=== PATIENT | female | born 1975 | race Caucasian/White ===

== ENCOUNTER 2017-06-08 15:35 | Inpatient (IN) ==
[2017-06-08] MEDS ORDERED: 0.9 % Sodium Chloride 1,000 ML IVC ONE (16:53)
[2017-06-08] MEDS ORDERED: *HR* FentaNYL (PF) 100 MCG/2 ML VIAL IVP ONE (16:54)
[2017-06-08] MEDS ORDERED: Piperacillin/Tazobactam 3.375 GM in 0.9 % Sodium Chloride Mini Bag 100 ML IVPB ONE (16:57)
--- NOTE | 2017-06-08 16:58 | Emergency Department Note ---
Disposition Clinical Impression: Cellulitis of breast, Breast abscess Disposition: Admitted As Inpatient Condition: Fair Time of Disposition: 20:34 General Adult HPI - General Chief complaint: ED General Medical Stated complaint: R breast swelling Time Seen by Provider: 06/08/17 16:14 Source: patient Mode of arrival: ambulatory Limitations: no limitations Nursing Notes Reviewed: Yes Vital Signs Reviewed: Yes - History of Present Illness HPI Narrative: 42-year-old female percent for evaluation of right breast pain and swelling. Patient states she hit her breast approximately week and half ago. Patient states that over the past 6 days she developed redness and swelling over the breast. Patient also noted increasing pain. Patient reports fevers over the past 3 days. Patient states that she has had fevers of 103 over the past 3 days. Patient denies any other symptoms. No nausea or vomiting. No abdominal pain. Patient denies any discharge from the breast. Patient states she is not because she has had a hysterectomy. Denies history of IV drug use. Pain Scale: 10 - Related Data Home Medications Medication Instructions Recorded Confirmed Depakote (12 HR) 01/04/15 01/04/15 Vicks Dayquil Cough 01/04/15 01/04/15 Wellbutrin 01/04/15 01/04/15 Previous Rx's Medication Instructions Recorded GuaiFENesin ER [Mucinex] 1 - 2 tab PO BID PRN #40 tab 01/04/15 Hydrocodone/Acetaminophen [[place] 1 each PO Q4H PRN #10 tablet 01/04/15 5-325 Tablet] Ibuprofen [Motrin] 800 mg PO Q6-8H PRN #30 tablet 01/04/15 Nitrofurantoin (BID) [Macrobid] 100 mg PO BID #14 capsule 01/04/15 Phenazopyridine HCl [Pyridium] 200 mg PO TID PRN #21 tablet 01/04/15 Promethazine/Dextromethorphan 5 ml PO Q4H PRN #120 ml 01/04/15 [Promethazine-Dm Syrup] Hydrocodone/Acetaminophen [[place] 1 tab PO Q6H PRN #10 tab 06/18/15 5-325 Tablet] Meloxicam [Mobic] 7.5 mg PO DAILY #20 tablet 08/27/15 Methocarbamol [Robaxin] 750 mg PO Q8HR PRN #20 tablet 08/27/15 Cyclobenzaprine [Flexeril] 10 mg PO TID #30 tablet 05/05/16 Peg 3350/Na Sulf,Bicarb,Cl/KCl 4,000 ml PO DAILY #1 soln.recon 07/10/16 [Golytely Solution] Allergies Allergy/AdvReac Type Severity Reaction Status Date / Time No Known Allergies Allergy Verified 01/04/15 14:45 All systems ED: reviewed and negative except as stated. Constitutional: Reports: fever Cardiovascular: Denies: chest pain Respiratory: Denies: cough Gastrointestinal: Denies: abdominal pain, nausea, vomiting Past Medical History - Past Medical History Source: patient Medical history: Reports: hepatitis, other Psychiatric history: Reports: anxiety, bipolar, depression, panic disorder - Social History Smoking Status: Light tobacco smoker Smokeless Tobacco Status: No Alcohol use: Reports: rarely Drug use: Reports: none Physical Exam - General Limitations: no limitations General appearance: alert, in no apparent distress - Head Head exam: atraumatic, normocephalic, normal inspection - Eye Eye exam: Present: normal appearance - ENT ENT exam: normal exam, mucous membranes moist - Neck Neck exam: Present: normal inspection - Chest Chest inspection: Present: normal inspection, other (Breast exam in the presence of a tire inspector shows extensive redness consistent with cellulitis of the dependent region of the right breast. There is an area of aged ecchymosis. Patient did not offer any palpation. No purulent discharge noted.) - Respiratory Respiratory exam: Present: normal lung sounds bilaterally. Absent: respiratory distress - Cardiovascular Cardiovascular exam: Present: regular rate, normal rhythm. Absent: systolic murmur - Abdominal Exam Abdominal exam: Present: soft, Non-Tender - Extremities Exam Extremities exam: Present: normal inspection - Back Exam Back exam: Present: normal inspection - Neurological Exam Neurological exam: Present: alert - Skin Skin exam: Present: warm, dry, intact, normal color, other (As discussed above) Course Course Narrative: Patient has extensive cellulitis of the right breast. Does have area of ecchymosis likely related to trauma. Concerns of cellulitis patient benefit from basic labs as well as CT imaging to evaluate for any possible abscess collection. Patient will likely require admission to ensure symptom resolution. - Reevaluation(s) Reevaluation #1: R EJ placed. Time: 18:21 Reevaluation #2: Awaiting CT scan. Patient's pain has improved. Time: 19:17 - Consultations Consultation #1: Spoke with Dr. Griggs who feels comfortably admitting the patient. Time: 20:24 Vital Signs Temperature 97.6 F 06/08/17 15:39 Pulse Rate 89 06/08/17 15:39 Respiratory Rate 14 06/08/17 15:39 Blood Pressure 118/79 06/08/17 15:39 O2 Sat by Pulse Oximetry 100 06/08/17 15:39 Temperature 97.6 F 06/08/17 15:39 Pulse Rate 89 06/08/17 15:39 Respiratory Rate 14 06/08/17 15:39 Blood Pressure 118/79 06/08/17 15:39 O2 Sat by Pulse Oximetry 100 06/08/17 15:39 Oxygen Delivery Oxygen Delivery Room Air Medical Decision Making - MDM Narrative Medical decision making narrative: Patient seen and examined. Patient has extensive cellulitis involvement of the right breast with underlying loculated abscess. Discussed case with surgery who states that they feel comfortable consulting with the patient. Patient was started on Vanco and Zosyn in the emergency department. Patient pain was addressed. Plan of care was discussed with patient at bedside. Patient will require formal surgical consult as well as IV antibiotics, pain control, and symptom resolution. - Lab Data Lab results reviewed: Yes I reviewed the patient's lab results. Result diagrams: 06/08/17 18:27 06/08/17 18:27 Lab Results 06/08/17 06/08/17 06/08/17 Range/Units 18:27 18:27 18:27 WBC 13.6 H (4.3-11.1) K/mcL RBC 3.28 L (3.82-4.97) M/mcL Hgb 10.1 L (11.5-15.4) g/dL Hct 29.7 L (35.3-44.9) % MCV 90.5 (83.0-100.0) fL MCH 30.8 (28.0-33.3) pg MCHC 34.0 (31.6-35.5) g/dL RDW 13.3 (11.5-14.5) % Plt Count 155 (140-400) K/mcL MPV 11.3 (9.4-12.4) fL Immature Gran % 2.6 (0-4) % Seg Neutrophils % 66.4 % Lymphocytes % 15.9 % Monocytes % 13.0 % Eosinophils % 1.8 % Basophils % 0.3 % Neutrophils # 9.0 H (1.6-8.9) K/mcL Lymphocytes # 2.2 (0.6-4.6) K/mcL Monocytes # 1.8 H (0.0-1.3) K/mcL Eosinophils # 0.2 (0.0-0.6) K/mcL Basophils # 0.0 (0.0-0.2) K/mcL Nucleated RBCs/100 WBC 0.2 H (0) /100 WBC Sodium 134 L (136-145) mEq/L Potassium 3.5 (3.5-5.1) mEq/L Chloride 104 (98-107) mEq/L Carbon Dioxide 26 (23-29) mEq/L BUN 8 (6-20) mg/dL Creatinine 0.82 (0.60-1.20) mg/dL Est GFR ( Amer) > 60 (> 60) Est GFR (Non-Af Amer) > 60 (> 60) BUN/Creatinine Ratio 10 (6-26) Glucose 94 (70-105) mg/dL Calculated Osmolality 276 L (280-300) Lactic Acid 0.9 (0.5-2.2) mmol/L Calcium 8.5 L (8.6-10.3) mg/dL - Radiology Data Radiology results reviewed: Yes I reviewed the patient's radiology results. Chest CT 06/08/17 16:56 IMPRESSION: 1. Diffuse swelling of the asymmetrically enlarged right breast, most likely mastitis given the clinical findings. Additionally, there appears to be a the loculated abscess just below the level of the right nipple. However, inflammatory carcinoma could appear similar. Recommend further evaluation with targeted sonography of the right breast. 2. Mildly enlarged right levels 1 and 2 axillary lymph nodes are most likely reactive, as are additional nonenlarged bilateral supraclavicular, bilateral axillary, mediastinal, hilar, and upper abdominal lymph nodes. Recommend attention on follow-up imaging. 3. Patchy subpleural and peribronchovascular groundglass opacities in both lungs with basilar sparing considerations include atypical pneumonia, eosinophilic pneumonia, or edema. The appearance is not suggestive of pulmonary sarcoidosis, although this remains a consideration given the above lymphadenopathy. 4. Findings suggestive of early cirrhosis as well as portal hypertension. D/ / Wesly Tsang MD / Wesly Tsang MD Interpreting Provider: Wesly Tsang MD Vamshi - Vamshi Situation: Demographics Background: Presenting Complaint Assessment: Vital Signs, Course and respsone to treatment, Patient/Family Expectation Recommendation: Barrier(s) to disposition, Recommendation based on pending studies, treatments, or consults S.Stanley Report Given to: Dr. Emma Bonds Repor Time: 20:34 Attestation Statement - Attestation Attestation: Patient was seen with resident physician. I reviewed the history, physical, assessment and plan, and agree with the findings. I also personally evaluated this patient and had [id number] time with this patient. 42-year-old female presents to the emergency department with painful swelling of the right breast. Patient states that approximately week ago she stumbled and fell impacting the lower middle portion of her right breast. Since then she has noticed increased pain. Increased redness around the breast, and she has had fevers up to 103. She denies other injuries to the breast at this time. She said she does have another bruise to the left breast but did not result in the pain swelling or redness. She is here today for evaluation and treatment. She denies other symptoms. Review of systems completed as per history of present illness. Remainder reviewed negative. Exam. Vital signs are stable. ENT is unremarkable. Heart and lungs are both normal. Abdomen soft nontender. Extremities unremarkable. Neurologically intact. Skin and chest wall exam, patient has a rather large cellulitic type infection to the right breast. There is bruising at the lower aspect of the breast where she impacted it, it is unclear if there is abscess as the patient would not allow us to physically examine the area secondary to pain. Psych exam normal. ED course. We will do a septic workup and start the patient on IV antibiotics. CT scan revealed developing abscess of the breast with extensive cellulitic changes and lymphadenopathy. We discussed these findings with surgery who is comfortable keeping her here for possible drainage with admission to the medical service for IV antibiotic therapy. Patient was difficult stick and we ended up having to place a right external jugular IV. She did receive IV antibiotics while here. Additionally we spoke with the hospitalist service to arrange for admission. I agree with resident physician assessment and plan.
[2017-06-08 18:40] LABS: Basophils % 0.3 %; Eosinophils # 0.2 K/mcL (0.0-0.6); Eosinophils % 1.8 %; Hematocrit 29.7 % (35.3-44.9); Hemoglobin 10.1 g/dL (11.5-15.4); Immature Granulocytes % 2.6 % (0-4); Lymphocytes # 2.2 K/mcL (0.6-4.6); Lymphocytes % 15.9 %; Mean Corpuscular Hemoglobin 30.8 pg (28.0-33.3); Mean Corpuscular Volume 90.5 fL (83.0-100.0); Mean Platelet Volume 11.3 fL (9.4-12.4); Monocytes # 1.8 K/mcL (0.0-1.3); Nucleated Red Blood Cells 0.2 /100 WBC (0); Platelet Count 155 K/mcL (140-400); Red Blood Count 3.28 M/mcL (3.82-4.97); Red Cell Distribution Width 13.3 % (11.5-14.5); Segmented Neutrophils % 66.4 %
[2017-06-08 19:08] LABS: BUN/Creatinine Ratio 10 (6-26); Blood Urea Nitrogen 8 mg/dL (6-20); Calcium 8.5 mg/dL (8.6-10.3); Carbon Dioxide 26 mEq/L (23-29); Chloride 104 mEq/L (98-107); Glucose 94 mg/dL (70-105); Osmolality,Calculated 276 (280-300); Potassium 3.5 mEq/L (3.5-5.1); Sodium 134 mEq/L (136-145); eGFR For African Americans > 60 (> 60); eGFR For Non-African Americans > 60 (> 60)
[2017-06-08] MEDS ORDERED: Naloxone 0.4 MG/ML INJ IVP PRN (21:03)
[2017-06-08] MEDS ORDERED: Ketorolac 30 MG/ML VIAL IVP PRN (21:03)
[2017-06-08] MEDS ORDERED: Acetaminophen 325 MG TABLET PO PRN (21:03)
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
[2017-06-08] MEDS ORDERED: Ketorolac 15 MG/ML VIAL IVP ONE (21:51)
[2017-06-08] MEDS ORDERED: OXYCODONE Oral CONC 10 MG/0.5 ML ORAL.SYG SL STA (23:06)
[2017-06-09] MEDS: 0.9 % Sodium Chloride 1,000 ML IVC SCH (00:25)
[2017-06-09] MEDS: Piperacillin/Tazobactam 3.375 GM in 0.9 % Sodium Chloride Mini Bag 100 ML IVPB SCH ×4 (01:10→18:03)
[2017-06-09] MEDS ORDERED: Divalproex (24 HR) 500 MG TABLET PO SCH (03:45)
[2017-06-09] MEDS: diazePAM 5 MG TABLET PO SCH ×3 (04:00→22:32)
[2017-06-09] MEDS ORDERED: OXYCODONE Oral CONC 10 MG/0.5 ML ORAL.SYG SL ONE (05:37)
[2017-06-09] MEDS: *HR* Heparin 5,000 UNIT/ML VIAL SQ SCH ×2 (05:56→18:03)
[2017-06-09 09:27] LABS: Basophils % 0.2 %; Eosinophils # 0.2 K/mcL (0.0-0.6); Hematocrit 28.5 % (35.3-44.9); Hemoglobin 9.3 g/dL (11.5-15.4); Immature Granulocytes % 2.1 % (0-4); Lymphocytes # 3.2 K/mcL (0.6-4.6); Lymphocytes % 20.6 %; Mean Corpuscular HGB Conc 32.6 g/dL (31.6-35.5); Mean Corpuscular Hemoglobin 30.1 pg (28.0-33.3); Mean Corpuscular Volume 92.2 fL (83.0-100.0); Monocytes # 1.8 K/mcL (0.0-1.3); Monocytes % 11.6 %; Nucleated Red Blood Cells 0.3 /100 WBC (0); Platelet Count 161 K/mcL (140-400); Red Blood Count 3.09 M/mcL (3.82-4.97); Red Cell Distribution Width 13.4 % (11.5-14.5); Segmented Neutrophils % 64.5 %
[2017-06-09 09:46] LABS: BUN/Creatinine Ratio 7 (6-26); Blood Urea Nitrogen 6 mg/dL (6-20); Calcium 8.2 mg/dL (8.6-10.3); Carbon Dioxide 24 mEq/L (23-29); Chloride 102 mEq/L (98-107); Glucose 109 mg/dL (70-105); Osmolality,Calculated 274 (280-300); Potassium 3.6 mEq/L (3.5-5.1); Sodium 133 mEq/L (136-145); eGFR For African Americans > 60 (> 60); eGFR For Non-African Americans > 60 (> 60)
--- NOTE | 2017-06-09 11:36 | General Surgery Consult Note ---
Date of Encounter: 06/09/17 Time of Encounter: 10:00 Assessment and Plan (1) Breast abscess Current Visit: Yes Status: Acute The patient has combination of abscess and cutaneous necrosis as well as cellulitis of the right breast. I have offered incision and drainage as well as debridement. We will perform this in the major operating suite later today. History of Present Illness Consult date: 06/09/17 Reason for consult: other (Right breast abscess) History of present illness: The patient states that she has had several days of right breast pain, however, she has extensive areas of necrosis on at least 3 areas the inferior breast associated with extensive breast cellulitis. She is complaining bitterly of breast pain. She presented to the emergency room with shakes chills and fever as well as exquisite right breast pain. CAT scan of the chest demonstrated abscess versus mass with extensive mastitis associated with right axillary adenopathy. On evaluation today, the patient complains bitterly of right breast pain. She has not previously had right breast surgery. She has obvious areas of necrosis on her breast. She will require breast incision and drainage. She will also require an extended period of antibiotics. I offered bedside debridement. The patient states that with the degree of pain that she is having she would prefer a general anesthetic. I think that this is reasonable. She will be posted in the main operating room for later today. Past Med Surg Social Fam HX - Past Medical History Medical history: hepatitis, other Psychiatric history: anxiety, bipolar, depression, panic disorder - Past Surgical History Surgical History: hysterectomy - Social History Smoking Status: Light tobacco smoker Smokeless Tobacco Status: No Alcohol use: rarely Drug use: none - Family History Mother History Unknown: Yes Medications and Allergies Depakote (12 HR) 01/04/15 [History] GuaiFENesin ER [Mucinex] 1 - 2 tab PO BID PRN #40 tab 01/04/15 [Rx] Hydrocodone/Acetaminophen [[place] 5-325 Tablet] 1 each PO Q4H PRN #10 tablet [Rx] Ibuprofen [Motrin] 800 mg PO Q6-8H PRN #30 tablet 01/04/15 [Rx] Nitrofurantoin (BID) [Macrobid] 100 mg PO BID #14 capsule 01/04/15 [Rx] Phenazopyridine HCl [Pyridium] 200 mg PO TID PRN #21 tablet 01/04/15 [Rx] Promethazine/Dextromethorphan [Promethazine-Dm Syrup] 5 ml PO Q4H PRN #120 ml [Rx] Vicks Dayquil Cough 01/04/15 [History] Wellbutrin 01/04/15 [History] Hydrocodone/Acetaminophen [[place] 5-325 Tablet] 1 tab PO Q6H PRN #10 tab [Rx] Meloxicam [Mobic] 7.5 mg PO DAILY #20 tablet 08/27/15 [Rx] Methocarbamol [Robaxin] 750 mg PO Q8HR PRN #20 tablet 08/27/15 [Rx] Cyclobenzaprine [Flexeril] 10 mg PO TID #30 tablet 05/05/16 [Rx] Peg 3350/Na Sulf,Bicarb,Cl/KCl [Golytely Solution] 4,000 ml PO DAILY #1 soln.recon 07/10/16 [Rx] 3 Allergy/AdvReac Type Severity Reaction Status Date / Time No Known Allergies Allergy Verified 01/04/15 14:45 Review of Systems All systems PM: The remainder of the systems were reviewed and are negative General Surgery Exam Initial Vital Signs Temp Pulse Resp BP Pulse Ox 97.6 F 89 14 118/79 100 06/08/17 15:39 06/08/17 15:39 06/08/17 15:39 06/08/17 15:39 06/08/17 15:39 - General physical appearance well developed, well nourished, no distress, obese - Neck no masses, no bruits, trachea midline, no lymphadectomy, no venous distension - Respiratory normal expansion, normal respiratory effort, clear to percussion, clear to auscultation - Cardiovascular Cardiovascular exam: Present: RRR, no murmurs/rubs/gallops - Abdomen Abdomen general surgery: Present: bowel sounds present, soft, non tender - Neurologic Present: CN 2-12 grossly intact, normal coordination, normal sensation - Psychiatric Psychiatric general surgery: Present: appropriate, oriented to person, oriented to place, oriented to time, speech is normal, memory intact - Additional Findings The patient had examination of the right breast. The entire breast is involved and cellulitis. She has multiple areas of necrosis on the inferior portion of the breast skin as well as fluctuance. She will require breast incision and drainage as well as debridement. If there is any abnormal tissue encountered I will also perform excisional biopsy. Exam Initial Vital Signs Temp Pulse Resp BP Pulse Ox 97.6 F 89 14 118/79 100 06/08/17 15:39 06/08/17 15:39 06/08/17 15:39 06/08/17 15:39 06/08/17 15:39 Results - Labs 06/09/17 08:20 06/09/17 08:20 Abnormal lab results WBC 15.4 K/mcL (4.3-11.1) H 06/09/17 08:20 RBC 3.09 M/mcL (3.82-4.97) L 06/09/17 08:20 Hgb 9.3 g/dL (11.5-15.4) L 06/09/17 08:20 Hct 28.5 % (35.3-44.9) L 06/09/17 08:20 Neutrophils # 10.0 K/mcL (1.6-8.9) H 06/09/17 08:20 Monocytes # 1.8 K/mcL (0.0-1.3) H 06/09/17 08:20 Nucleated RBCs/100 WBC 0.3 /100 WBC (0) H 06/09/17 08:20 Sodium 133 mEq/L (136-145) L 06/09/17 08:20 Glucose 109 mg/dL (70-105) H 06/09/17 08:20 Calculated Osmolality 274 (280-300) L 06/09/17 08:20 Calcium 8.2 mg/dL (8.6-10.3) L 06/09/17 08:20 Diabetes panel 06/09/17 Range/Units 08:20 Sodium 133 L (136-145) mEq/L Potassium 3.6 (3.5-5.1) mEq/L Chloride 102 (98-107) mEq/L Carbon Dioxide 24 (23-29) mEq/L BUN 6 (6-20) mg/dL Creatinine 0.92 (0.60-1.20) mg/dL Glucose 109 H (70-105) mg/dL Calcium 8.2 L (8.6-10.3) mg/dL Calcium panel 06/09/17 Range/Units 08:20 Calcium 8.2 L (8.6-10.3) mg/dL Pituitary panel 06/09/17 Range/Units 08:20 Sodium 133 L (136-145) mEq/L Potassium 3.6 (3.5-5.1) mEq/L Chloride 102 (98-107) mEq/L Carbon Dioxide 24 (23-29) mEq/L BUN 6 (6-20) mg/dL Creatinine 0.92 (0.60-1.20) mg/dL Glucose 109 H (70-105) mg/dL Calcium 8.2 L (8.6-10.3) mg/dL Adrenal panel 06/09/17 Range/Units 08:20 Sodium 133 L (136-145) mEq/L Potassium 3.6 (3.5-5.1) mEq/L Chloride 102 (98-107) mEq/L Carbon Dioxide 24 (23-29) mEq/L BUN 6 (6-20) mg/dL Creatinine 0.92 (0.60-1.20) mg/dL Glucose 109 H (70-105) mg/dL Calcium 8.2 L (8.6-10.3) mg/dL All other labs normal. - Imaging CT scan - chest: image reviewed (I personally reviewed the CAT scan of the chest. She does have right axillary adenopathy as well as retroareolar mass versus abscess. Clinically this is abscess. She also has extensive cellulitis changes in the breast tissue and surrounding subcutaneous tissue) Consult Discharge Plan - Plan Referrals: Irving Lopez, PAC [Primary Care Provider] -
[2017-06-09] MEDS ORDERED: *HR* OxyCODONE/APAP 10/325 TABLET PO ONE (14:56)
--- NOTE | 2017-06-09 17:21 | Anesthesia Evaluation PreOp ---
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: Denies Any Significant HX Other Medical History: Other (Bipolar, Morbid Obesity) Anesthesia History: No Prior Anesthetic Complications : No (Hysterectomy) Alcohol Use: rarely Drug use: none Medications and Allergies BuPROPion XL (24 HR) [Wellbutrin XL] 300 mg PO DAILY 06/09/17 [History] Divalproex (24 HR) [Depakote ER (24 HR)] 500 mg PO HS 06/09/17 [History] Gabapentin [Neurontin] 300 mg PO BID 06/09/17 [History] Ibuprofen [Ibuprofen] 800 mg PO TID PRN 06/09/17 [History] Loratadine [Claritin] 10 mg PO DAILY 06/09/17 [History] Omeprazole [PriLOSEC] 20 mg PO DAILY 06/09/17 [History] Quetiapine Fumarate [Seroquel] 100 mg PO HS 06/09/17 [History] diazePAM [Valium] 5 mg PO BID PRN 06/09/17 [History] 3 Allergy/AdvReac Type Severity Reaction Status Date / Time No Known Allergies Allergy Verified 06/09/17 12:22 - Meds/Allergy Pre-op Review Medications Reviewed: Yes Allergies Reviewed: Yes Beta Blockers on Current Med List: No Anesthesia Results - Labs 06/09/17 08:20 06/09/17 08:20 - Imaging EKG: report reviewed (Sinus Tach) Anesthesia Exam O2 Sat Height 1.6 m Weight 115 kg Weight 113.9 kg Weight 113.9 kg O2 Sat by Pulse Oximetry 97 O2 Sat by Pulse Oximetry 98 O2 Sat by Pulse Oximetry 99 O2 Sat by Pulse Oximetry 100 O2 Sat by Pulse Oximetry 100 Vital Signs Temp Pulse Resp BP Pulse Ox 97.6 F 89 14 118/79 100 06/08/17 15:39 06/08/17 15:39 06/08/17 15:39 06/08/17 15:39 06/08/17 15:39 Height: 5'3 Weight: 253 lbs NPO (# of Hours): MN Pain Scale: 2 - HEENT Pupil (Motor): Pupils equal, EOMI Mallampati: III Teeth: Normal Oral Opening: Less than or equal to 3 - FIRE EXTINGUISHER CHARGER LOC: Oriented FIRE EXTINGUISHER CHARGER Motor: Normal RUE, Normal LUE, Normal RLE, Normal LLE, Normal Face FIRE EXTINGUISHER CHARGER Sensory: Normal: RUE, LUE, RLE, LLE, Face - Cardiac Rhythm: Regular Murmur: None JVD: No Carotid Bruit: No - Pulmonary Breath Sounds: bilateral Clear Respiratory Effort: Symmetrical Anesthesia Assess/Plan ASA Score: 3 (MO) Modified Goldvein Scale for Level of Consciousness: Cooperative, oriented, and tranquil Anesthetic Plan: General Monitoring Plan: Standard Monitors Recovery Plan: PACU (Discussed GA, agrees to proceed)
[2017-06-09] MEDS ORDERED: Famotidine 20 MG/2 ML VIAL ONE (17:29)
[2017-06-09] MEDS ORDERED: CefOXitin 1,000 MG VIAL ONE (17:31)
[2017-06-09] MEDS ORDERED: Vancomycin 1,000 MG VIAL ONE (17:31)
[2017-06-09] MEDS ORDERED: Ondansetron 4 MG/2 ML VIAL ONE (17:35)
[2017-06-09] MEDS ORDERED: *HR* Propofol 200 MG/20 ML VIAL IVP ONE (17:35)
[2017-06-09] MEDS ORDERED: Lidocaine -MPF 2% 2 ML VIAL ONE (17:35)
[2017-06-09] MEDS ORDERED: Dexamethasone 4 MG/ML VIAL ONE (17:35)
[2017-06-09] MEDS ORDERED: *HR* FentaNYL (PF) 100 MCG/2 ML VIAL ONE ×2 (17:35→17:57)
--- NOTE | 2017-06-09 17:49 | Internal Med Progress Note ---
Date of Encounter: 06/09/17 Time of Encounter: 11:00 - Assessment and plan (1) Breast abscess Current Visit: Yes Status: Acute Assessment and plan: Patient with right breast cellulitis with abscess Continue IV vancomycin and Zosyn Gen. surgery consult with recommendations for incision and drainage today (2) Bipolar disorder Current Visit: Yes Status: Acute Assessment and plan: Continue home medications Qualifiers: Active/Remission status: remission status unspecified Qualified Code(s): F31.9 - Bipolar disorder, unspecified (3) Hepatitis C Current Visit: Yes Status: Acute Assessment and plan: Stable; continue to monitor Qualifiers: Viral hepatitis chronicity: chronic Hepatic coma status: without hepatic coma Qualified Code(s): B18.2 - Chronic viral hepatitis C (4) DVT prophylaxis Current Visit: Yes Status: Acute Assessment and plan: Heparin subcutaneous - Subjective Interval history: Patient complaining of right breasts pain secondary to mastitis She has had a low-grade temp with leukocytosis Gen. surgery consult with plans for I&D today - Constitutional Vitals: Temp Pulse Resp BP Pulse Ox 100 F H 87 17 112/78 97 06/09/17 06:57 06/09/17 06:57 06/09/17 06:57 06/09/17 06:57 06/09/17 06:57 General appearance: Present: A&O X 3, severe distress, answers questions appropriately - Cardiovascular Cardiovascular exam: Present: RRR, +S1, +S2. Absent: diastolic murmur, gallop, rubs, systolic murmur - Skin Skin exam: Present: erythema (Patient with firm cellulitis covering much of the right breast with abscess present) Internal Medicine: Result - Labs CBC & Chem 7: 06/09/17 08:20 06/09/17 08:20 Labs: Short CBC 06/09/17 Range/Units 08:20 WBC 15.4 H (4.3-11.1) K/mcL Hgb 9.3 L (11.5-15.4) g/dL Hct 28.5 L (35.3-44.9) % Plt Count 161 (140-400) K/mcL Neutrophils # 10.0 H (1.6-8.9) K/mcL BMP 06/09/17 08:20 Sodium 133 L Potassium 3.6 Chloride 102 Carbon Dioxide 24 BUN 6 Creatinine 0.92 Glucose 109 H Calcium 8.2 L Consult Discharge Plan - Plan Referrals: Irving Lopez, PAC [Primary Care Provider] -
[2017-06-09] MEDS ORDERED: *HR* Morphine 10 MG/ML VIAL ONE (18:10)
--- NOTE | 2017-06-09 18:23 | Operative Note ---
Date of procedure: 06/09/17 Pre-op diagnosis: Right breast abscess Post-op diagnosis: same Procedure: #1 incision and drainage of right breast abscess (125 mL of pus). #2 full- thickness debridement of the skin and breast tissue to the level of the subcutaneous tissue Anesthesia: LAURITA Surgeon: Bob Griggs Was there an faculty i on call medical assistant present: No Estimated blood loss (cc): 20 Specimen: Aerobic and anaerobic cultures Condition: stable Disposition: PACU Procedure in Detail: After informed consent the patient was taken to the major operative suite placed in the supine position given adequate general anesthetic. The patient was identified. The lateralizing skylar was identified. The right breast was prepped and draped in sterile fashion utilizing Betadine solution standard draping techniques. There were 3 areas of skin necrosis one at the 7 o'clock position with the 6 o'clock position and one at the 4 o'clock position. The 4 o 'clock position was the largest. I started with the 7 o'clock position I made a transverse incision into the abscess. I drained 125 mL of thick white pus there were areas in the pus that appeared to be necrotic tissue and small blood clots. Once this was removed and then used pickups #15 blade to debride full- thickness skin to the level subcutaneous tissue at the 4 o'clock position. This left a defect about 3 cm circular. The last area of necrosis was about 1 cm circular at the 6 o'clock position and when I debrided it was clear that the skin between the 6:00 and the 4 o'clock position was necrotic. The necrotic skin was debrided. The underlying breast tissue actually looked quite normal. The breast tissue is firm because of the inflammatory response. I removed all necrotic tissue with pickups and a #15 blade and used electrocautery for hemostasis. There were 2 openings in the breast that remained after debridement one at the 7 o'clock position and one connecting the 6 and 4 o' clock position. The wound was irrigated with copious amounts of antibiotic containing solution and packed with iodoform. She tolerated the procedure well. Initial cultures at the time of incision and drainage were sent for aerobic and anaerobic analysis
[2017-06-09] MEDS ORDERED: Ketorolac 30 MG/ML VIAL IVP PRN (18:28)
[2017-06-09] MEDS ORDERED: Naloxone 0.4 MG/ML INJ IVP PRN (18:28)
[2017-06-09] MEDS ORDERED: Acetaminophen 325 MG TABLET PO PRN (18:28)
--- NOTE | 2017-06-09 18:46 | Anesthesia Evaluation Post Op ---
Date of Encounter: 06/09/17 Time of Encounter: 18:50 - Vital Signs Vital Signs: Vital Signs/O2 Sat/Glucose, Most Current Temp Pulse Resp BP Pulse Ox 06/09/17 18:37 98.0 F 89 16 108/63 99 06/09/17 18:27 98.0 F 89 16 103/58 99 - Lungs Lungs: Clear Ascult./Percussion - Airway Airway: Non-obstructed - Cardiovascular Regular Rate - Mental Status Mental Status: Alert & Oriented, Answers Appropriately - Pain Pain Scale: 3 - Nausea Vomiting Nausea Vomiting: Not Present - Hydration Hydration: Ice chips - Discharge PostOp Status: Transfer Patient to floor
[2017-06-09] MEDS: *HR* OxyCODONE/APAP 10/325 TABLET PO PRN (22:31)
[2017-06-09] MEDS: Divalproex (24 HR) 500 MG TABLET PO SCH (22:32)
[2017-06-10] MEDS: Piperacillin/Tazobactam 3.375 GM in 0.9 % Sodium Chloride Mini Bag 100 ML IVPB SCH ×4 (01:47→23:52)
[2017-06-10] MEDS: OXYCODONE Oral CONC 10 MG/0.5 ML ORAL.SYG SL PRN ×2 (01:48→11:10)
[2017-06-10] MEDS: *HR* Heparin 5,000 UNIT/ML VIAL SQ SCH ×2 (05:45→18:31)
[2017-06-10] MEDS: *HR* OxyCODONE/APAP 10/325 TABLET PO PRN ×2 (05:46→21:07)
[2017-06-10] MEDS: diazePAM 5 MG TABLET PO SCH (08:21)
[2017-06-10 09:07] LABS: Basophils % 0.2 %; Hematocrit 27.9 % (35.3-44.9); Hemoglobin 9.3 g/dL (11.5-15.4); Immature Granulocytes % 2.5 % (0-4); Lymphocytes # 1.8 K/mcL (0.6-4.6); Lymphocytes % 10.9 %; Mean Corpuscular HGB Conc 33.3 g/dL (31.6-35.5); Mean Corpuscular Hemoglobin 30.9 pg (28.0-33.3); Mean Corpuscular Volume 92.7 fL (83.0-100.0); Mean Platelet Volume 11.2 fL (9.4-12.4); Monocytes # 0.9 K/mcL (0.0-1.3); Monocytes % 5.2 %; Neutrophils # 13.5 K/mcL (1.6-8.9); Platelet Count 163 K/mcL (140-400); Red Blood Count 3.01 M/mcL (3.82-4.97); Red Cell Distribution Width 13.5 % (11.5-14.5); Segmented Neutrophils % 81.2 %
[2017-06-10 09:36] LABS: BUN/Creatinine Ratio 16 (6-26); Blood Urea Nitrogen 13 mg/dL (6-20); Calcium 8.4 mg/dL (8.6-10.3); Carbon Dioxide 22 mEq/L (23-29); Chloride 106 mEq/L (98-107); Glucose 230 mg/dL (70-105); Osmolality,Calculated 287 (280-300); Potassium 4.8 mEq/L (3.5-5.1); Sodium 135 mEq/L (136-145); eGFR For African Americans > 60 (> 60); eGFR For Non-African Americans > 60 (> 60)
[2017-06-10] MEDS: 0.9 % Sodium Chloride 1,000 ML IVC SCH (11:01)
--- NOTE | 2017-06-10 15:44 | General Surgery Progress Note ---
<YonisTaina Milan - Last Filed: 06/10/17 15:40> Date of Encounter: 06/10/17 Time of Encounter: 15:40 - Assessment and Plan (1) Breast abscess Current Visit: Yes Status: Acute s/p #1 incision and drainage of right breast abscess (125 mL of pus). #2 full- thickness debridement of the skin and breast tissue to the level of the subcutaneous tissue. Patient is afebrile. Cultures pending. WBC 16.7. IV antibiotics per primary team. Packing was removed. Wound beds on the right breast are pink and was granulation tissue. No odor noted. Repacked with 1/2 inch iodoform gauze. Dressing was applied. Notable erythema and induration circumferential to the entire breast. It is not outside the previously marked areas of cellulitis. It does not appear to have improved since marking was placed. Plan: IV antibiotics per primary team. The patient is recommended to remain in the hospital for IV antibiotics at this time. Daily wound care per surgery Adjust pain medications. Patient may need premedicated prior to next dressing change given surrounding cellulitis Recommend tetnus booster if not received in the last 10 years (2) Cellulitis of breast Current Visit: Yes Status: Acute See above (3) Bipolar disorder Current Visit: Yes Status: Acute Pt states to this LUMBER INSPECTOR, "I'm gonna give you a smack straight across the face for that pain." This LUMBER INSPECTOR discouraged such threats against any healthcare professional or any person in that regards. patient apologized and states, "I was just joking. I did not mean to offend you." This LUMBER INSPECTOR informed patient that apology was accepted and strongly discourages any threatening statements toward her caregivers. Patient states understanding. plan: chronic condition management per primary team Qualifiers: Active/Remission status: remission status unspecified Qualified Code(s): F31.9 - Bipolar disorder, unspecified (4) Hepatitis C Current Visit: Yes Status: Acute Qualifiers: Viral hepatitis chronicity: chronic Hepatic coma status: without hepatic coma Qualified Code(s): B18.2 - Chronic viral hepatitis C Subjective Patient reports: no new complaints, feels better, still having pain, tolerating a regular diet, voiding w/o difficulty, afebrile Objective Vital Signs - Last 8 Hours Temp Pulse Resp BP Pulse Ox 06/10/17 14:54 97.6 F 65 18 140/80 98 06/10/17 10:53 97.6 F 67 18 125/83 98 Intake and Output 06/09/17 06/10/17 06/10/17 23:59 07:59 15:59 Intake Total 0 / 0 600 / 600 580 / 580 Output Total 700 / 700 300 / 300 Balance -20 / -20 -100 / -100 280 / 280 Intake: IV Fluids 600 / 600 100 / 100 0.9 % Sodium Chloride 1,000 ML 0 / 0 @ 120 mls/hr IVC .Q8H20M [facility] Rx #:[id number] Zosyn 3.375 GM In 0.9 % Sodium 100 / 100 100 / 100 Chloride (Mini-Bag +) 100 ML @ 25 mls/hr IVPB Q8HR [facility] Rx#: [id number] Vancocin 1,750 MG In 0.9 % 500 / 500 Sodium Chloride 500 ML @ 333. 333 mls/hr IVPB Q12H [facility] Rx#: [id number] Oral 0 / 0 0 / 0 480 / 480 Output: Urine 700 / 700 300 / 300 Estimated Blood Loss Other: Meal NPO for supper Breakfast Percent of Meal Consumed 100% # Voids 1 1 - General physical appearance no distress, moderate pain - Eyes normal ocular movement - ENT atraumatic, normocephalic - Neck Neck exam: trachea midline, no venous distension - Respiratory normal expansion, normal respiratory effort, clear to auscultation - Cardiovascular Cardiovascular exam: Present: RRR - Abdomen Abdomen: Present: bowel sounds present, soft, non tender - Incision Incision: Present: open (Right breast IND sites open, draining SS fluid; surrounding cellulitis of the entire breast) - Integumentary no abnormal pigmentation, other (see above) - Neurologic CN 2-12 grossly intact, normal coordination, normal sensation - Musculoskeletal normal gait, normal posture - Psychiatric oriented to time, oriented to person, oriented to place, speech is normal, memory intact, other (pt stated, "I'm gonna give you a smack across the face for that pain.") - Labs 06/10/17 08:57 06/10/17 08:57 Diabetes panel 06/10/17 Range/Units 08:57 Sodium 135 L (136-145) mEq/L Potassium 4.8 (3.5-5.1) mEq/L Chloride 106 (98-107) mEq/L Carbon Dioxide 22 L (23-29) mEq/L BUN 13 (6-20) mg/dL Creatinine 0.81 (0.60-1.20) mg/dL Glucose 230 H (70-105) mg/dL Calcium 8.4 L (8.6-10.3) mg/dL Calcium panel 06/10/17 Range/Units 08:57 Calcium 8.4 L (8.6-10.3) mg/dL Pituitary panel 06/10/17 Range/Units 08:57 Sodium 135 L (136-145) mEq/L Potassium 4.8 (3.5-5.1) mEq/L Chloride 106 (98-107) mEq/L Carbon Dioxide 22 L (23-29) mEq/L BUN 13 (6-20) mg/dL Creatinine 0.81 (0.60-1.20) mg/dL Glucose 230 H (70-105) mg/dL Calcium 8.4 L (8.6-10.3) mg/dL Adrenal panel 06/10/17 Range/Units 08:57 Sodium 135 L (136-145) mEq/L Potassium 4.8 (3.5-5.1) mEq/L Chloride 106 (98-107) mEq/L Carbon Dioxide 22 L (23-29) mEq/L BUN 13 (6-20) mg/dL Creatinine 0.81 (0.60-1.20) mg/dL Glucose 230 H (70-105) mg/dL Calcium 8.4 L (8.6-10.3) mg/dL - VTE Documentation of Mechanical Device: Intermittent pneumatic compression device Consult Discharge Plan - Plan Referrals: Irving Lopez, PAC [Primary Care Provider] - <Bob Griggs - Last Filed: 06/11/17 16:31> Date of Encounter: 06/10/17 - Assessment and Plan (1) Breast abscess Current Visit: Yes Status: Acute Objective Vital Signs - Last 8 Hours Temp Pulse Resp BP Pulse Ox 06/11/17 14:34 97.6 F 90 18 114/74 96 06/11/17 11:29 97.9 F 82 16 121/76 97 Intake and Output 06/11/17 06/11/17 06/11/17 07:59 15:59 23:59 Intake Total 166.3 / 166.3 240 / 240 Output Total 0 / 0 400 / 400 Balance 166.3 / 166.3 -160 / -160 Intake: IV Fluids 166.3 / 166.3 Zosyn 3.375 GM In 0.9 % Sodium 15.3 / 15.3 Chloride (Mini-Bag +) 100 ML @ 25 mls/hr IVPB Q8HR [facility] Rx#: [id number] Vancocin 1,750 MG In 0.9 % 151 / 151 Sodium Chloride 500 ML @ 333. 333 mls/hr IVPB Q12H [facility] Rx#: [id number] Oral 0 / 0 240 / 240 Output: Urine 0 / 0 400 / 400 Other: Meal Breakfast Percent of Meal Consumed 75% - Labs 06/10/17 08:57 06/10/17 08:57 - Attending Attestation The patient is seen and evaluated on morning rounds. Patient's care is discussed with the clinical nurse practitioner. She has made good progress overnight and is having less pain in her right breast. We will continue with dressing changes and antibiotic therapy until the cellulitis is under control. We should be able to transition to a negative pressure wound therapy system in several days. Bob Griggs MD FACS
--- NOTE | 2017-06-10 18:28 | Internal Med Progress Note ---
Date of Encounter: 06/10/17 Time of Encounter: 11:00 - Assessment and plan (1) Breast abscess Current Visit: Yes Status: Acute Assessment and plan: Patient with right breast cellulitis and abscess status post I&D by general surgery on 06/10/17. Incision and drainage of right breast abscess produced 125 mL of pus which was sent for cultures. Will continue IV vancomycin and Zosyn. (2) Bipolar disorder Current Visit: Yes Status: Acute Assessment and plan: Continue home medications Qualifiers: Active/Remission status: remission status unspecified Qualified Code(s): F31.9 - Bipolar disorder, unspecified (3) Hepatitis C Current Visit: Yes Status: Acute Assessment and plan: Stable; continue to monitor Qualifiers: Viral hepatitis chronicity: chronic Hepatic coma status: without hepatic coma Qualified Code(s): B18.2 - Chronic viral hepatitis C (4) DVT prophylaxis Current Visit: Yes Status: Acute Assessment and plan: Heparin subcutaneous - Subjective Interval history: Patient is a 42-year-old female who presents with right breast cellulitis and abscess status post I&D by general surgery on 06/10/17. - Constitutional Vitals: Temp Pulse Resp BP Pulse Ox 97.6 F 65 18 140/80 98 06/10/17 14:54 06/10/17 14:54 06/10/17 14:54 06/10/17 14:54 06/10/17 14:54 General appearance: Present: A&O X 3, severe distress, answers questions appropriately - Respiratory Respiratory exam: Present: CTAB. Absent: accessory muscle use, rales, rhonchi, wheezes - Cardiovascular Cardiovascular exam: Present: RRR, +S1, +S2. Absent: diastolic murmur, gallop, rubs, systolic murmur - Skin Skin exam: Present: erythema (Right breast with cellulitic changes with erythema ) Internal Medicine: Result - Labs CBC & Chem 7: 06/10/17 08:57 06/10/17 08:57 Labs: Short CBC 06/10/17 Range/Units 08:57 WBC 16.7 H (4.3-11.1) K/mcL Hgb 9.3 L (11.5-15.4) g/dL Hct 27.9 L (35.3-44.9) % Plt Count 163 (140-400) K/mcL Neutrophils # 13.5 H (1.6-8.9) K/mcL BMP 06/10/17 08:57 Sodium 135 L Potassium 4.8 Chloride 106 Carbon Dioxide 22 L BUN 13 Creatinine 0.81 Glucose 230 H Calcium 8.4 L - VTE Documentation of Mechanical Device: Intermittent pneumatic compression device Consult Discharge Plan - Plan Referrals: Irving Lopez, PAC [Primary Care Provider] -
[2017-06-10] MEDS: Ketorolac 30 MG/ML VIAL IVP SCH ×2 (18:31→23:34)
[2017-06-10] MEDS: Divalproex (24 HR) 500 MG TABLET PO SCH (21:06)
[2017-06-10] MEDS: Gabapentin 300 MG CAPSULE PO SCH (21:07)
[2017-06-10] MEDS: diazePAM 5 MG TABLET PO PRN (23:51)
[2017-06-11] MEDS: Ketorolac 30 MG/ML VIAL IVP SCH ×3 (05:58→16:59)
[2017-06-11] MEDS: *HR* Heparin 5,000 UNIT/ML VIAL SQ SCH ×2 (06:03→17:06)
--- NOTE | 2017-06-11 09:09 | General Surgery Progress Note ---
<Axel John - Last Filed: 06/11/17 09:06> Date of Encounter: 06/11/17 Time of Encounter: 07:45 - Assessment and Plan (1) Breast abscess Current Visit: Yes Status: Acute Day 2 s/p incision and drainage of right breast abscess (125 mL of pus) and full -thickness debridement of the skin and breast tissue to the level of the subcutaneous tissue. Preliminary report for wound culture reads staphylococcus aureus presuptively identified as MRSA. Wound is currently packed with 1/2 inch iodoform gauze. Dressing is applied. Notable erythema and induration circumferential to the entire breast that is slightly outside the preciously marked areas of cellulitis. Plan: Continue IV antibiotics per primary team. The patient is recommended to remain in the hospital for IV antibiotics at this time. Daily wound care per surgery Adjust pain medications. Patient may need premedicated prior to next dressing change given surrounding cellulitis Recommend tetnus booster if not received in the last 10 years (2) Status post incision and drainage Current Visit: Yes Status: Acute Status post incision and drainage day 2. See plan as above (3) Cellulitis of breast Current Visit: Yes Status: Acute See plan as above. (4) Bipolar disorder Current Visit: Yes Status: Acute Plan per primary team. Qualifiers: Active/Remission status: remission status unspecified Qualified Code(s): F31.9 - Bipolar disorder, unspecified (5) Hepatitis C Current Visit: Yes Status: Acute Qualifiers: Viral hepatitis chronicity: chronic Hepatic coma status: without hepatic coma Qualified Code(s): B18.2 - Chronic viral hepatitis C Subjective Patient reports: no new complaints, still having pain, pain is less, tolerating a regular diet, afebrile Objective Vital Signs - Last 8 Hours Temp Pulse Resp BP Pulse Ox 06/11/17 06:01 97.4 F L 77 14 99/65 97 06/11/17 01:08 83 16 102/65 97 Intake and Output 06/10/17 06/11/17 06/11/17 23:59 07:59 15:59 Intake Total 840 / 840 166.3 / 166.3 Output Total 0 / 0 Balance 840 / 840 166.3 / 166.3 Intake: IV Fluids 600 / 600 166.3 / 166.3 Zosyn 3.375 GM In 0.9 % Sodium 100 / 100 15.3 / 15.3 Chloride (Mini-Bag +) 100 ML @ 25 mls/hr IVPB Q8HR [facility] Rx#: [id number] Vancocin 1,750 MG In 0.9 % 500 / 500 151 / 151 Sodium Chloride 500 ML @ 333. 333 mls/hr IVPB Q12H [facility] Rx#: [id number] Oral 240 / 240 0 / 0 Output: Urine 0 / 0 Other: Meal Dinner Percent of Meal Consumed 100% # Voids 2 - General physical appearance well developed, well nourished, no distress - Eyes PERRL, normal ocular movement - ENT normal mucosa - Neck Neck exam: trachea midline - Respiratory normal expansion, normal respiratory effort, clear to auscultation, other - Cardiovascular Cardiovascular exam: Present: RRR, no murmurs/rubs/gallops - Abdomen Abdomen: Present: bowel sounds present, soft, non tender - Incision Incision: Present: draining, intact (Right breast is mildly swollen with overlying cellulitis. Erythematous spreaded outside of marking. Right breast Tender to palpation.), erythema, open (Right breast IND sites draining SS fluid ; surrounding cellulitis of the entire breast. Erythema and induration circumferential to the entire breast slightly outside of the marked areas of cellulitis.). Absent: purulent - Integumentary no abnormal pigmentation - Neurologic CN 2-12 grossly intact - Psychiatric oriented to time, oriented to person, oriented to place, other (Appears frustrated. Patient states she is tire and is "mad that everyone keeps waking me up". ) - Labs 06/10/17 08:57 06/10/17 08:57 Diabetes panel 06/10/17 Range/Units 08:57 Sodium 135 L (136-145) mEq/L Potassium 4.8 (3.5-5.1) mEq/L Chloride 106 (98-107) mEq/L Carbon Dioxide 22 L (23-29) mEq/L BUN 13 (6-20) mg/dL Creatinine 0.81 (0.60-1.20) mg/dL Glucose 230 H (70-105) mg/dL Calcium 8.4 L (8.6-10.3) mg/dL Calcium panel 06/10/17 Range/Units 08:57 Calcium 8.4 L (8.6-10.3) mg/dL Pituitary panel 06/10/17 Range/Units 08:57 Sodium 135 L (136-145) mEq/L Potassium 4.8 (3.5-5.1) mEq/L Chloride 106 (98-107) mEq/L Carbon Dioxide 22 L (23-29) mEq/L BUN 13 (6-20) mg/dL Creatinine 0.81 (0.60-1.20) mg/dL Glucose 230 H (70-105) mg/dL Calcium 8.4 L (8.6-10.3) mg/dL Adrenal panel 06/10/17 Range/Units 08:57 Sodium 135 L (136-145) mEq/L Potassium 4.8 (3.5-5.1) mEq/L Chloride 106 (98-107) mEq/L Carbon Dioxide 22 L (23-29) mEq/L BUN 13 (6-20) mg/dL Creatinine 0.81 (0.60-1.20) mg/dL Glucose 230 H (70-105) mg/dL Calcium 8.4 L (8.6-10.3) mg/dL - VTE Documentation of Mechanical Device: Intermittent pneumatic compression device Consult Discharge Plan - Plan Referrals: Irving Lopez, PAC [Primary Care Provider] - <Bob Griggs - Last Filed: 06/11/17 16:38> Date of Encounter: 06/11/17 - Assessment and Plan (1) Breast abscess Current Visit: Yes Status: Acute Objective Vital Signs - Last 8 Hours Temp Pulse Resp BP Pulse Ox 06/11/17 14:34 97.6 F 90 18 114/74 96 06/11/17 11:29 97.9 F 82 16 121/76 97 Intake and Output 06/11/17 06/11/17 06/11/17 07:59 15:59 23:59 Intake Total 166.3 / 166.3 240 / 240 Output Total 0 / 0 400 / 400 Balance 166.3 / 166.3 -160 / -160 Intake: IV Fluids 166.3 / 166.3 Zosyn 3.375 GM In 0.9 % Sodium 15.3 / 15.3 Chloride (Mini-Bag +) 100 ML @ 25 mls/hr IVPB Q8HR [facility] Rx#: [id number] Vancocin 1,750 MG In 0.9 % 151 / 151 Sodium Chloride 500 ML @ 333. 333 mls/hr IVPB Q12H [facility] Rx#: [id number] Oral 0 / 0 240 / 240 Output: Urine 0 / 0 400 / 400 Other: Meal Breakfast Percent of Meal Consumed 75% - Labs 06/10/17 08:57 06/10/17 08:57 - Attending Attestation The patient is seen and evaluated on morning rounds with the resident. She continues to make slow progress. The area of erythema on the breast actually enlarged with IV antibiotic therapy. The breast has been fully debrided and drained. No further surgical intervention is necessary. Bob Griggs MD FACS
[2017-06-11] MEDS: Gabapentin 300 MG CAPSULE PO SCH ×2 (10:04→21:51)
[2017-06-11] MEDS: Piperacillin/Tazobactam 3.375 GM in 0.9 % Sodium Chloride Mini Bag 100 ML IVPB SCH (10:04)
[2017-06-11] MEDS: BuPROPion XL (24 HR) 150 MG TABLET PO SCH (10:04)
[2017-06-11] MEDS: *HR* OxyCODONE/APAP 10/325 TABLET PO PRN ×3 (10:10→21:50)
--- NOTE | 2017-06-11 15:08 | Internal Med Progress Note ---
Date of Encounter: 06/11/17 Time of Encounter: 11:00 - Assessment and plan (1) Sepsis Current Visit: Yes Status: Acute Assessment and plan: Presented with tachycardia and leukocytosis, noted to have right-sided breast abscess. Continue IV antibiotics and follow up wound and blood cultures. Lactic acid within normal limits. Qualifiers: Sepsis type: methicillin resistant Staphylococcus aureus Qualified Code(s) : A41.02 - Sepsis due to Methicillin resistant Staphylococcus aureus (2) Breast abscess Current Visit: Yes Status: Acute Assessment and plan: Surgery on board, underwent incision and drainage of right breast abscess on ; local wound care with packing per surgery recommendations. Continue IV vancomycin, hold Zosyn. Wound culture shows staph aureus, likely MRSA. Continue pain control with when necessary oxycodone. Supportive care. Discussed with case management, patient may need to be discharged on home health services for wound care. (3) Cellulitis of breast Current Visit: Yes Status: Acute Assessment and plan: Plan as above. (4) Bipolar disorder Current Visit: Yes Status: Chronic Assessment and plan: Resume home medications. Qualifiers: Active/Remission status: remission status unspecified Qualified Code(s): F31.9 - Bipolar disorder, unspecified (5) Hepatitis C Current Visit: Yes Status: Chronic Qualifiers: Viral hepatitis chronicity: chronic Hepatic coma status: without hepatic coma Qualified Code(s): B18.2 - Chronic viral hepatitis C - Subjective Interval history: Reports right breast pain; no fever/chills, nausea, vomiting; no abdominal pain ; requests for more pain meds; - Constitutional Vitals: Temp Pulse Resp BP Pulse Ox 97.9 F 82 16 121/76 97 06/11/17 11:29 06/11/17 11:29 06/11/17 11:29 06/11/17 11:29 06/11/17 11:29 General appearance: Present: A&O X 3 (somnolent but able to answer questions), answers questions appropriately - Respiratory Respiratory exam: Present: CTAB. Absent: accessory muscle use, rales, rhonchi, wheezes Additional comments: right breast- significant tenderness, swelling, redness; packing and dry dressing in place; - Cardiovascular Cardiovascular exam: Present: RRR, +S1, +S2. Absent: diastolic murmur, gallop, rubs, systolic murmur - GI/Abdominal GI/Abdominal exam: Present: normal bowel sounds, soft, no peritoneal signs. Absent: distended, tenderness - Extremities Exam Extremities exam: Present: full ROM, warm, radial pulses palpable and symmetrical. Absent: calf tenderness, cyanotic, pedal edema - Neurological Exam Neurological exam: Present: CN II-XII intact, oriented X3, no focal deficits. Absent: pronater drift, facial droop, speech deficit Internal Medicine: Result - Labs CBC & Chem 7: 06/10/17 08:57 06/10/17 08:57 - VTE Documentation of Mechanical Device: Intermittent pneumatic compression device Consult Discharge Plan - Plan Referrals: Irving Lopez, PAC [Primary Care Provider] -
[2017-06-11] MEDS: diazePAM 5 MG TABLET PO PRN (21:50)
[2017-06-11] MEDS: Divalproex (24 HR) 500 MG TABLET PO SCH (21:51)
[2017-06-12] MEDS: Ketorolac 30 MG/ML VIAL IVP SCH ×4 (00:27→17:56)
[2017-06-12] MEDS: *HR* OxyCODONE/APAP 10/325 TABLET PO PRN ×3 (04:34→21:47)
[2017-06-12] MEDS: *HR* Heparin 5,000 UNIT/ML VIAL SQ SCH ×2 (05:58→17:56)
[2017-06-12 08:42] LABS: Hematocrit 29.3 % (35.3-44.9); Hemoglobin 9.1 g/dL (11.5-15.4); Mean Corpuscular HGB Conc 31.1 g/dL (31.6-35.5); Mean Corpuscular Hemoglobin 30.4 pg (28.0-33.3); Mean Platelet Volume 10.9 fL (9.4-12.4); Nucleated Red Blood Cells 0.2 /100 WBC (0); Platelet Count 180 K/mcL (140-400); Red Blood Count 2.99 M/mcL (3.82-4.97); Red Cell Distribution Width 13.6 % (11.5-14.5)
[2017-06-12 09:26] LABS: Eosinophils # 0.2 K/mcL (0.0-0.6); Lymphocytes # 4.5 K/mcL (0.6-4.6); Monocytes # 0.6 K/mcL (0.0-1.3); Neutrophils # 4.5 K/mcL (1.6-8.9)
--- NOTE | 2017-06-12 09:35 | General Surgery Progress Note ---
<Axel John - Last Filed: 06/12/17 09:31> Date of Encounter: 06/12/17 Time of Encounter: 07:20 - Assessment and Plan (1) Breast abscess Current Visit: Yes Status: Acute Day 3 s/p incision and drainage of right breast abscess (125 mL of pus) and full -thickness debridement of the skin and breast tissue to the level of the subcutaneous tissue. Final report for wound culture identified as MRSA. Wound is currently packed with 1/2 inch iodoform gauze. Dressing is applied. Notable erythema and induration circumferential to the entire breast that is slightly outside the preciously marked areas of cellulitis. The breast has been fully debrided and drained. No further surgical intervention is necessary. Plan: Continue IV antibiotics per primary team. The patient is recommended to remain in the hospital for IV antibiotics at this time. Daily wound care Adjust pain medications. Patient may need premedicated prior to next dressing change given surrounding cellulitis Recommend tetnus booster if not received in the last 10 years (2) Status post incision and drainage Current Visit: Yes Status: Acute Status post incision and drainage day 3. See plan as above (3) Cellulitis of breast Current Visit: Yes Status: Acute See plan as above. (4) Bipolar disorder Current Visit: Yes Status: Chronic Plan per primary team. Qualifiers: Active/Remission status: remission status unspecified Qualified Code(s): F31.9 - Bipolar disorder, unspecified (5) Hepatitis C Current Visit: Yes Status: Chronic Qualifiers: Viral hepatitis chronicity: chronic Hepatic coma status: without hepatic coma Qualified Code(s): B18.2 - Chronic viral hepatitis C Subjective Patient reports: feels better, still having pain, bowel movement, afebrile Narrative: The patient was seen and evaluated at bedside this morning. The patient was awake, alert, afebrile, and appears in no acute distress. The patient states that she is tire because "everyone keeps waking me up". When asked why the patient refuses her IV antibiotics, the patient states that "it lee". Dr. Griggs has discussed the risks and benefits of IV antibiotics and highly recommended that the patient continues the IV antibiotics. The patient then states that she is willing to try the IV antibiotics again today "if they can do something about the burning". The patient also refuse her morning medications today. The patient denies any fever, headaches, vision changes, chest pain, shortness of breath, difficulty breathing, nausea vomiting, urinary symptoms, and any weaknesses. The patient has no other concerns at this time. Objective Vital Signs - Last 8 Hours Temp Pulse Resp BP Pulse Ox 06/12/17 08:27 97.7 F 75 18 118/70 118 Intake and Output 06/11/17 06/12/17 06/12/17 23:59 07:59 15:59 Intake Total 0 / 0 0 / 0 Output Total 0 / 0 0 / 0 Balance 0 / 0 0 / 0 Intake: Oral 0 / 0 0 / 0 Output: Urine 0 / 0 0 / 0 - General physical appearance well developed, well nourished, no distress, other (The patient appears frustrated about being woken up for exam today.) - Eyes PERRL, normal ocular movement - ENT normal mucosa - Neck Neck exam: trachea midline - Respiratory normal expansion, normal respiratory effort, clear to auscultation, other (The right breast is tender to palpation. The right breast appears swollen and erythematous. Packing and dressing is in place.) - Cardiovascular Cardiovascular exam: Present: RRR, no murmurs/rubs/gallops - Abdomen Abdomen: Present: bowel sounds present, soft, non tender - Incision Incision: Present: draining, open (Right breast I&D sites are draining serosanguious fluid. There is surrounding cellulitis of the entire right breast.) - Integumentary no abnormal pigmentation - Neurologic CN 2-12 grossly intact - Psychiatric oriented to time, oriented to person, oriented to place - Labs 06/12/17 08:14 06/10/17 08:57 - VTE Documentation of Mechanical Device: Intermittent pneumatic compression device Consult Discharge Plan - Plan Referrals: Irving Lopez, PAC [Primary Care Provider] - <Bob Griggs - Last Filed: 06/12/17 14:35> Date of Encounter: 06/12/17 - Assessment and Plan (1) Breast abscess Current Visit: Yes Status: Acute Objective Vital Signs - Last 8 Hours Temp Pulse Resp BP Pulse Ox 06/12/17 08:27 97.7 F 75 18 118/70 118 Intake and Output 06/11/17 06/12/17 06/12/17 23:59 07:59 15:59 Intake Total 0 / 0 1280 / 1280 Output Total 0 / 0 0 / 0 Balance 0 / 0 1280 / 1280 Intake: IV Fluids 0 / 0 Vancocin 1,750 MG In 0.9 % 0 / 0 Sodium Chloride 500 ML @ 333. 333 mls/hr IVPB Q12H [facility] Rx#: [id number] Oral 0 / 0 1280 / 1280 Output: Urine 0 / 0 0 / 0 Other: Meal Breakfast Percent of Meal Consumed 100% - Labs 06/12/17 08:14 06/10/17 08:57 - Attending Attestation I examined this patient and my medical decision-making was reviewed with the Resident Physician. I agree with the documented findings, disposition and treatment plan as described except to the extent set forth below. The patient was seen and evaluated on morning rounds with the resident. It is brought her attention that she has refused 2 doses of IV antibiotics. I think this is an absolutely terrible decision that she is made in the breast continues to have significant cellulitis and she will require intravenous antibiotic therapy to treat this. Without intravenous antibiotic therapy her infection will spread and worsening she states that she will reconsider taking her antibiotics and we hope that she does Bob Griggs MD FACS
[2017-06-12] MEDS: Gabapentin 300 MG CAPSULE PO SCH ×2 (10:39→21:46)
[2017-06-12] MEDS: BuPROPion XL (24 HR) 150 MG TABLET PO SCH (10:39)
[2017-06-12] MEDS: diazePAM 5 MG TABLET PO PRN (10:40)
[2017-06-12] MEDS ORDERED: Chloraseptic Spray 177 ML BOTTLE MM PRN (11:47)
[2017-06-12] MEDS ORDERED: 0.9 % Sodium Chloride 250 ML ONE (14:13)
--- NOTE | 2017-06-12 16:33 | Internal Med Progress Note ---
Date of Encounter: 06/12/17 Time of Encounter: 10:45 - Assessment and plan (1) Sepsis Current Visit: Yes Status: Acute Assessment and plan: Presented with tachycardia and leukocytosis, noted to have right-sided breast abscess. Improving clinically, resolving leukocytosis. Continue IV antibiotics for now. Lactic acid within normal limits. Qualifiers: Sepsis type: methicillin resistant Staphylococcus aureus Qualified Code(s) : A41.02 - Sepsis due to Methicillin resistant Staphylococcus aureus (2) Breast abscess Current Visit: Yes Status: Acute Assessment and plan: Surgery on board, underwent incision and drainage of right breast abscess on ; local wound care with packing per surgery recommendations. Continue IV vancomycin for another day. Wound culture grows MRSA. Blood cultures are negative. Continue pain control with when necessary oxycodone. Supportive care. Discussed with case management, patient may need to be discharged on home health services for wound care. Case discussed with infectious diseases, patient may be discharged on oral antibiotics when stable. (3) Cellulitis of breast Current Visit: Yes Status: Acute (4) Bipolar disorder Current Visit: Yes Status: Chronic Assessment and plan: Resume home medications. Qualifiers: Active/Remission status: remission status unspecified Qualified Code(s): F31.9 - Bipolar disorder, unspecified (5) Hepatitis C Current Visit: Yes Status: Chronic Qualifiers: Viral hepatitis chronicity: chronic Hepatic coma status: without hepatic coma Qualified Code(s): B18.2 - Chronic viral hepatitis C - Subjective Interval history: Feels better. Continues to have right breast pain, worse with dressing changes. Has been refusing IV vancomycin due to multiple reasons-burning pain with infusion, nausea, vomiting, severe of losing her only IV access. Answered all her questions and encouraged her to continue taking IV antibiotics, to get better, she verbalized understanding. - Constitutional Vitals: Temp Pulse Resp BP Pulse Ox 97.7 F 75 18 118/70 118 06/12/17 08:27 06/12/17 08:27 06/12/17 08:27 06/12/17 08:27 06/12/17 08:27 General appearance: Present: A&O X 3, answers questions appropriately - Respiratory Respiratory exam: Present: CTAB. Absent: accessory muscle use, rales, rhonchi, wheezes - Cardiovascular Cardiovascular exam: Present: RRR, +S1, +S2. Absent: diastolic murmur, gallop, rubs, systolic murmur - GI/Abdominal GI/Abdominal exam: Present: normal bowel sounds, soft (obese), no peritoneal signs. Absent: distended, tenderness - Skin Skin exam: Present: dry, intact Additional comments: Right breast abscess status post incision and drainage with deep packing. Surrounding cellulitis improving. Internal Medicine: Result - Labs CBC & Chem 7: 06/12/17 08:14 06/10/17 08:57 Labs: Short CBC 06/12/17 Range/Units 08:14 WBC 9.8 (4.3-11.1) K/mcL Hgb 9.1 L (11.5-15.4) g/dL Hct 29.3 L (35.3-44.9) % Plt Count 180 (140-400) K/mcL Neutrophils # 4.5 (1.6-8.9) K/mcL - VTE Documentation of Mechanical Device: Intermittent pneumatic compression device Consult Discharge Plan - Plan Referrals: Irving Lopez, PAC [Primary Care Provider] -
[2017-06-12] MEDS: OXYCODONE Oral CONC 10 MG/0.5 ML ORAL.SYG SL PRN (17:56)
[2017-06-12] MEDS: Divalproex (24 HR) 500 MG TABLET PO SCH (21:46)
[2017-06-13] MEDS: *HR* OxyCODONE/APAP 10/325 TABLET PO PRN (04:50)
[2017-06-13] MEDS: *HR* Heparin 5,000 UNIT/ML VIAL SQ SCH (04:50)
[2017-06-13] MEDS: BuPROPion XL (24 HR) 150 MG TABLET PO SCH (09:21)
[2017-06-13] MEDS: Gabapentin 300 MG CAPSULE PO SCH (09:22)
[2017-06-13 11:06] VITALS: BP 134/89
--- NOTE | 2017-06-13 11:06 | General Surgery Progress Note ---
<Axel John - Last Filed: 06/13/17 13:25> Date of Encounter: 06/13/17 Time of Encounter: 08:00 - Assessment and Plan (1) Breast abscess Status: Acute Day 4 s/p incision and drainage of right breast abscess (125 mL of pus) and full -thickness debridement of the skin and breast tissue to the level of the subcutaneous tissue. Final report for wound culture identified as MRSA. Wound is currently packed with 1/2 inch iodoform gauze. Dressing is applied. Notable erythema and induration circumferential to the entire breast that is improving and is within the marked areas of cellulitis. The breast has been fully debrided and drained. No further surgical intervention is necessary. Plan: Continue antibiotics per primary team. Daily wound care Adjust pain medications. Patient may need premedicated prior to next dressing change given surrounding cellulitis Recommend tetnus booster if not received in the last 10 years patient was instructed to follow-up with the outpatient surgery office within 2 weeks. Patient verbalize understanding. Surgery will sign off at this time. Thank you for allowing surgery team to participate in the patient's care. (2) Status post incision and drainage Status: Acute Status post incision and drainage day 4. See plan as above (3) Cellulitis of breast Status: Acute See plan as above. (4) Bipolar disorder Status: Chronic Plan per primary team. Qualifiers: Active/Remission status: remission status unspecified Qualified Code(s): F31.9 - Bipolar disorder, unspecified (5) Hepatitis C Status: Chronic Qualifiers: Viral hepatitis chronicity: chronic Hepatic coma status: without hepatic coma Qualified Code(s): B18.2 - Chronic viral hepatitis C Subjective Patient reports: feels better, pain is less, tolerating a regular diet, bowel movement, afebrile Narrative: The patient was seen and evaluated at bedside this morning. The patient was awake, alert, afebrile, and appears in no acute distress. Patient states that the pain in her right breast is less and improving. However, the patient complains she is having pain in the lateral aspect of the left breast now. She denies any nipple discharge or fevers. There is no overlying signs of cellulitis or infection on her left breast. She states that "my left breast is having sympathetic pain. All i need is a bra to hold up my boob." The patient denies any headaches, vision changes, new syncope, chest pain, shortness of breath, difficulty breathing, abdominal pain, urinary symptoms, numbness and tingling, nausea vomiting, and any weaknesses. The patient has no other concerns at this time. Objective Vital Signs - Last 8 Hours Temp Pulse Resp BP Pulse Ox 06/13/17 07:09 97.8 F 83 14 127/87 97 06/13/17 03:43 97.8 F 85 16 134/89 100 Intake and Output 06/12/17 06/13/17 06/13/17 23:59 07:59 15:59 Intake Total 300 / 300 980 / 980 Output Total 0 / 0 900 / 900 Balance 300 / 300 80 / 80 Intake: IV Fluids 500 / 500 Vancocin 1,750 MG In 0.9 % 500 / 500 Sodium Chloride 500 ML @ 333. 333 mls/hr IVPB Q12H [facility] Rx#: [id number] Oral 300 / 300 480 / 480 Output: Urine 0 / 0 900 / 900 Other: # Voids 2 # Bowel Movements 1 - General physical appearance well developed, well nourished, no distress - Eyes PERRL, normal ocular movement - ENT normal mucosa - Neck Neck exam: trachea midline - Respiratory normal expansion, normal respiratory effort, clear to auscultation, other ( Surrounding cellulitis of the entire right breast but appears to be improving. Left breast Appears normal without any nipple discharge. No overlying cellulitis or signs of infection of the left breast.) - Cardiovascular Cardiovascular exam: Present: RRR, no murmurs/rubs/gallops - Abdomen Abdomen: Present: bowel sounds present, soft, non tender. Absent: distended, guarding, rebound - Incision Incision: Present: draining, open (Right breast I&D sites are draining serosanguious fluid. There is surrounding cellulitis of the entire right breast but it is improving. Erythematous but improved and is now within the initial marking. ). Absent: purulent - Integumentary no abnormal pigmentation - Neurologic CN 2-12 grossly intact - Psychiatric oriented to time, oriented to person, oriented to place - Labs 06/12/17 08:14 06/10/17 08:57 - VTE Documentation of Mechanical Device: Intermittent pneumatic compression device Consult Discharge Plan - Plan Instructions: Breast Abscess Drainage (DC) Additional Instructions: F/up with Surgery clinic for wound check Referrals: Jeannine Nguyen MEDICAL CONSULTANT [Advanced Practice Nurse] - 06/20/17 9:00 am Prescriptions: OxyCODONE/APAP 10/325 [Percocet 10/325 MG] 1 each PO Q6HR PRN 7 Days #15 tablet PRN Reason: Severe Pain Doxycycline 100 mg PO BID #20 capsule Sennosides/Docusate Sodium [Senna Plus] 1 each PO BID PRN #30 tablet PRN Reason: Constipation <Bob Griggs - Last Filed: 06/14/17 08:55> Date of Encounter: 06/13/17 - Assessment and Plan (1) Breast abscess Status: Acute Objective - Labs 06/12/17 08:14 06/10/17 08:57 - Attending Attestation I examined this patient and my medical decision-making was reviewed with the Resident Physician. I agree with the documented findings, disposition and treatment plan as described except to the extent set forth below. The patient is seen and evaluated with resident on morning rounds. She has been taking her IV antibiotics and is making progress. She can be discharged on oral antibiotics when clinically stable. I will be glad to follow her in the wound clinic as an outpatient. Bob Hurd MD FACS
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
--- NOTE | 2017-06-13 11:43 | Physician Discharge Referral ---
Home Health/Hosp Referral Info Transfer to: Home Health Attending Provider: Luz Marina Jacobs Provider in Charge Post Discharge: PCP - Diagnosis (1) Sepsis Priority: Primary Status: Resolved (2) Breast abscess Priority: Primary Status: Acute (3) Cellulitis of breast Priority: Primary Status: Acute (4) Bipolar disorder Priority: Secondary Status: Chronic (5) Hepatitis C Priority: Secondary Status: Chronic - Respiratory Orders Smoking Cessation: Smoking cessation has been advised. For more information, call the [place] Tobacco Quit Line at 5-047-IENO-NOW. - Diet/Nutrition Diet/Nutrition Orders: Regular - Activity Activity Orders: Ambulate - Services Needed Following services are medically necessary services: Nursing (Wound care orders per Surgery recommendations) - Transfer Medications Prescriptions: OxyCODONE/APAP 10/325 [Percocet 10/325 MG] 1 each PO Q6HR PRN 7 Days #15 tablet PRN Reason: Severe Pain Doxycycline 100 mg PO BID #20 capsule Sennosides/Docusate Sodium [Senna Plus] 1 each PO BID PRN #30 tablet PRN Reason: Constipation Home Medications: BuPROPion XL (24 HR) [Wellbutrin Xl] 300 mg PO DAILY 06/09/17 [History] Divalproex (24 HR) [Depakote ER (24 HR)] 500 mg PO HS 06/09/17 [History] Gabapentin [Neurontin] 300 mg PO BID 06/09/17 [History] Ibuprofen 800 mg PO TID PRN 06/09/17 [History] Loratadine [Claritin] 10 mg PO DAILY 06/09/17 [History] Omeprazole [PriLOSEC] 20 mg PO DAILY 06/09/17 [History] Quetiapine Fumarate [Seroquel] 150 mg PO HS 06/09/17 [History] diazePAM [Valium] 5 mg PO BID PRN 06/09/17 [History] Acetaminophen [Tylenol] 650 mg PO Q6HR PRN tablet 06/13/17 [Rx] Doxycycline 100 mg PO BID #20 capsule 06/13/17 [Rx] OxyCODONE/APAP 10/325 [Percocet 10/325 MG] 1 each PO Q6HR PRN 7 Days #15 tablet 06/13/17 [Rx] Sennosides/Docusate Sodium [Senna Plus] 1 each PO BID PRN #30 tablet 06/13/17 [ Rx] Allergies/Adverse Reactions: 3 Allergy/AdvReac Type Severity Reaction Status Date / Time No Known Allergies Allergy Verified 06/09/17 12:22 Certification: Further, I certify that my clinical findings support that this patient is homebound (i.e. absences from home require considerable and taxing effort and are for medical reasons or sabianist services or infrequently or short duration when for other reasons) because: Homebound Reason: Leaving home requires considerable and taxing effort due to condition Attestation: My signature below is to certify that this patient is under my care and that I, or nurse practitioner, or a physician's periodicals library assistant working with me, has a face-to -face encounter with this patient.
[2017-06-13] MEDS: OXYCODONE Oral CONC 10 MG/0.5 ML ORAL.SYG SL PRN (16:27)
[2017-06-13] MEDS ORDERED: Aminoglycoside Consult 1 EACH MC ONE (16:49)
== END 2017-06-13 16:50 | disposition home health service (06) | DRG 720 ==
LOC: EMEROO 15:35 → 3ANU 15:35 → SUATTDRO 21:06 → 3ANU 22:57
PROVIDERS: ADMIT Hospitalist; ATTEND Internal Medicine

== ENCOUNTER 2020-10-30 21:43 | Inpatient (IN) ==
[2020-10-31] MEDS ORDERED: *HR* HYDROcodone/Acet 5/325 mg TABLET PO STA (00:20)
[2020-10-31 00:36] LABS: Basophils % 0.5 %; Eosinophils % 0.5 %; Hematocrit 35.6 % (35.3-44.9); Hemoglobin 12.2 g/dL (11.5-15.4); Immature Granulocytes % 0.6 % (0-4); Lymphocytes # 1.5 K/mcL (0.6-4.6); Lymphocytes % 17.1 %; Mean Corpuscular HGB Conc 34.3 g/dL (31.6-35.5); Mean Corpuscular Hemoglobin 30.3 pg (28.0-33.3); Mean Corpuscular Volume 88.6 fL (83.0-100.0); Mean Platelet Volume 10.4 fL (9.4-12.4); Monocytes # 1.2 K/mcL (0.0-1.3); Monocytes % 14.1 %; Neutrophils # 5.9 K/mcL (1.6-8.9); Platelet Count 237 K/mcL (140-400); Red Blood Count 4.02 M/mcL (3.82-4.97); Red Cell Distribution Width 13.7 % (11.5-14.5); Segmented Neutrophils % 67.2 %; White Blood Count 8.7 K/mcL (4.3-11.1)
[2020-10-31 00:55] LABS: BUN/Creatinine Ratio 9 (6-26); Blood Urea Nitrogen 6 mg/dL (6-20); C-Reactive Protein 111 mg/L (Less than 10); Calcium 8.9 mg/dL (8.6-10.3); Carbon Dioxide 26 mEq/L (23-29); Chloride 101 mEq/L (98-107); Glucose 83 mg/dL (70-105); Osmolality,Calculated 277 (280-300); Potassium 3.2 mEq/L (3.5-5.1); Sodium 135 mEq/L (136-145); eGFR For African Americans > 60 (> 60); eGFR For Non-African Americans > 60 (> 60)
[2020-10-31] MEDS ORDERED: cefTRIAXone 1,000 MG in Water for inj. (sterile) 10 ML IVP ONE (01:20)
[2020-10-31] MEDS ORDERED: Vancomycin 1,250 MG/262.5 ML IV.SOLN IVPB ONE (02:00)
[2020-10-31 02:45] LABS: Bilirubin,Urine Negative (Negative); Blood,Urine Negative (Negative); Clarity,Urine Clear (Clear); Color,Urine Light-Yellow (Yellow); Glucose,Urine (UA) Normal (Normal); Ketones,Urine Negative (Negative); Leukocyte Esterase,Urine Negative (Negative); Nitrite,Urine Negative (Negative); Protein,Urine Negative (Neg-Trace); Specific Gravity,Urine 1.005 (1.010-1.025)
[2020-10-31] MEDS ORDERED: Ondansetron 4 MG/2 ML VIAL IVP PRN (03:27)
[2020-10-31] MEDS ORDERED: Naloxone 0.4 MG/ML INJ IVP PRN (03:27)
[2020-10-31] MEDS ORDERED: Acetaminophen 325 MG TABLET PO PRN (03:27)
[2020-10-31 04:07] LABS: Adenovirus Not Detected (Not Detect); Bordetella Pertussis Not Detected (Not Detect); Chlamydophila pneumoniae Not Detected (Not Detect); Coronavirus 229E Not Detected (Not Detect); Coronavirus HKU1 Not Detected (Not Detect); Coronavirus NL63 Not Detected (Not Detect); Coronavirus OC43 Not Detected (Not Detect); Human Metapneumovirus Not Detected (Not Detect); Human Rhinovirus/Enterovirus Not Detected (Not Detect); Influenza A Subtype 2009 H1 Not Detected (Not Detect); Influenza B Not Detected (Not Detect); Mycoplasma pneumoniae Not Detected (Not Detect); Parainfluenza Virus 1 Not Detected (Not Detect); Parainfluenza Virus 2 Not Detected (Not Detect); Parainfluenza Virus 3 Not Detected (Not Detect); Parainfluenza Virus 4 Not Detected (Not Detect); Respiratory Syncytial Virus Not Detected (Not Detect); SARS-CoV-2 Not Detected (Not Detect)
[2020-10-31] MEDS ORDERED: *HR* HYDROcodone/Acet 5/325 mg TABLET PO ONE (04:38)
[2020-10-31] MEDS ORDERED: *HR* HYDROcodone/Acet 5/325 mg TABLET PO PRN (05:46)
[2020-10-31] MEDS ORDERED: Potassium Chloride 40 MEQ, Lidocaine 1% 2 ML in 0.9 % Sodium Chloride 500 ML IVPB ONE (06:26)
[2020-10-31] MEDS: *HR* Heparin 5,000 UNIT/ML VIAL SQ SCH ×2 (13:29→19:38)
[2020-10-31] MEDS: Nicotine 21 MG PATCH.TD24 TD SCH (13:29)
[2020-10-31] MEDS: Vancomycin 1,250 MG/262.5 ML IV.SOLN IVPB SCH (13:30)
[2020-10-31] MEDS: *HR* OxyCODONE/APAP 7.5/325 TABLET PO PRN ×2 (15:17→19:30)
[2020-10-31] MEDS: Lactobacillus 1 EACH CAP.SPRINK PO SCH (19:30)
[2020-10-31] MEDS: Ketorolac 15 MG/ML VIAL IVP PRN (22:19)
[2020-11-01] MEDS: *HR* OxyCODONE/APAP 7.5/325 TABLET PO PRN ×4 (00:23→20:00)
[2020-11-01] MEDS: Vancomycin 1,250 MG/262.5 ML IV.SOLN IVPB SCH ×3 (01:33→17:48)
[2020-11-01] MEDS: *HR* Heparin 5,000 UNIT/ML VIAL SQ SCH ×3 (05:08→21:19)
[2020-11-01 05:14] LABS: Basophils % 0.4 %; Eosinophils # 0.1 K/mcL (0.0-0.6); Eosinophils % 1.9 %; Hematocrit 32.1 % (35.3-44.9); Hemoglobin 10.7 g/dL (11.5-15.4); Immature Granulocytes % 0.4 % (0-4); Lymphocytes # 1.6 K/mcL (0.6-4.6); Lymphocytes % 23.4 %; Mean Corpuscular HGB Conc 33.3 g/dL (31.6-35.5); Mean Corpuscular Hemoglobin 29.9 pg (28.0-33.3); Mean Corpuscular Volume 89.7 fL (83.0-100.0); Mean Platelet Volume 10.3 fL (9.4-12.4); Monocytes % 14.6 %; Platelet Count 204 K/mcL (140-400); Red Blood Count 3.58 M/mcL (3.82-4.97); Red Cell Distribution Width 13.6 % (11.5-14.5); Segmented Neutrophils % 59.3 %; White Blood Count 6.7 K/mcL (4.3-11.1)
[2020-11-01 05:34] LABS: Alanine Aminotransferase 42 Units/L (7-52); Albumin/Globulin Ratio 0.9 (1.1-2.2); Alkaline Phosphatase 108 Units/L (34-104); Aspartate Amino Transferase 40 Units/L (13-39); BUN/Creatinine Ratio 9 (6-26); Bilirubin,Total 0.5 mg/dL (0.3-1.0); Blood Urea Nitrogen 6 mg/dL (6-20); Calcium 8.4 mg/dL (8.6-10.3); Carbon Dioxide 28 mEq/L (23-29); Chloride 104 mEq/L (98-107); Globulin 3.2 g/dL (2.4-3.5); Glucose 92 mg/dL (70-105); Magnesium 1.6 mg/dL (1.6-2.6); Osmolality,Calculated 281 (280-300); Phosphorous 3.9 mg/dL (2.7-4.5); Sodium 137 mEq/L (136-145); Total Protein 6.2 g/dL (6.4-8.9); eGFR For African Americans > 60 (> 60); eGFR For Non-African Americans > 60 (> 60)
[2020-11-01] MEDS: Ketorolac 15 MG/ML VIAL IVP PRN ×2 (05:53→12:12)
[2020-11-01] MEDS: Lactobacillus 1 EACH CAP.SPRINK PO SCH ×2 (07:22→20:00)
[2020-11-01] MEDS ORDERED: cefTRIAXone 1,000 MG in Water for inj. (sterile) 10 ML IVP SCH (09:00)
[2020-11-01 09:06] LABS: Amphetamine Screen,Urine Negative ng/mL (Cutoff=1000); Barbiturate Screen,Urine Negative ng/mL (Cutoff=200); Benzodiazepines Screen,Urine Negative ng/mL (Cutoff=200); Cannabinoid Screen,Urine Positive ng/mL (Cutoff = 50); Cocaine Screen,Urine Positive ng/mL (Cutoff= 300); Opiate Screen,Urine Positive ng/mL (Cutoff=300); Phencyclidine Screen,Urine Negative ng/mL (Cutoff=25)
[2020-11-01] MEDS: Calcium Gluconate 1gm/50mL 1 GM/50 ML BAG IVPB SCH ×2 (10:21→11:12)
[2020-11-01] MEDS ORDERED: Dextrose Gel 15 GM/37.5 ML TUBE PO PRN ×2 (11:13)
[2020-11-01] MEDS ORDERED: D5% in Water 1,000 ML IVC PRN (11:13)
[2020-11-01] MEDS: Nicotine 21 MG PATCH.TD24 TD SCH (11:13)
[2020-11-01] MEDS ORDERED: Loratadine 10 MG TABLET PO PRN (11:13)
[2020-11-01] MEDS ORDERED: *HR* Dextrose 50 % in Water (Vial) 50 ML VIAL IVP PRN (11:13)
[2020-11-01] MEDS ORDERED: cefTRIAXone 1,000 MG in Water for inj. (sterile) 10 ML IVP ONE (11:23)
[2020-11-01] MEDS: clonazePAM 1 MG TABLET PO SCH ×2 (12:12→21:18)
[2020-11-01] MEDS: BuPROPion XL (24 HR) 150 MG TABLET PO SCH (12:12)
[2020-11-01 14:02] LABS: Hematocrit 29.8 % (35.3-44.9); Hemoglobin 10.2 g/dL (11.5-15.4)
[2020-11-01] MEDS ORDERED: Lidocaine -MPF 4% 5 ML AMPUL ONE (15:22)
[2020-11-01] MEDS ORDERED: *HR* Midazolam HCl 5 MG/5 ML VIAL IVP ONE (15:25)
[2020-11-01] MEDS ORDERED: *HR* FentaNYL (PF) 100 MCG/2 ML VIAL ONE (15:26)
[2020-11-01] MEDS ORDERED: Lidocaine -MPF 2% 2 ML VIAL ONE (15:26)
[2020-11-01] MEDS ORDERED: *HR* Propofol 200 MG/20 ML VIAL IVP ONE (15:26)
[2020-11-01] MEDS ORDERED: *HR* Succinylcholine 200 MG/10 ML VIAL IVP ONE (15:26)
[2020-11-01] MEDS ORDERED: Ondansetron 4 MG/2 ML VIAL ONE (15:26)
[2020-11-01] MEDS ORDERED: Scopolamine Patch 1.5 MG PATCH.TD72 TD ONE (16:20)
[2020-11-01] MEDS ORDERED: *HR* Labetalol 20 MG/4 ML SYRINGE IVP PRN (16:20)
[2020-11-01] MEDS ORDERED: *HR* HYDROmorphone 2 MG TABLET PO PRN (16:20)
[2020-11-01] MEDS ORDERED: *HR* HYDROmorphone (PF) 1 MG/ML SYRINGE IVP PRN (16:20)
[2020-11-01] MEDS ORDERED: Famotidine 20 MG/2 ML VIAL IVP ONE (16:20)
[2020-11-01] MEDS ORDERED: Promethazine 6.25 MG in Water for inj. (sterile) 20 ML IVPB PRN (16:20)
[2020-11-01] MEDS ORDERED: *HR* OxyCODONE Immed Rel 5 MG TABLET PO PRN (16:20)
[2020-11-01] MEDS: Gabapentin 300 MG CAPSULE PO SCH ×2 (16:21→20:01)
[2020-11-01 17:18] LABS: Source,Synovial Fluid left shoulder
[2020-11-01 18:07] LABS: Appearance,Synovial Fluid Cloudy (Clear-Hazy); Color,Synovial Fluid Amber (Straw)
[2020-11-01] MEDS ORDERED: Perflutren Lipid Microsphere 1.3 ML in 0.9 % Sodium Chloride 8.7 ML IVP PRN (18:57)
[2020-11-02] MEDS: *HR* OxyCODONE/APAP 7.5/325 TABLET PO PRN ×4 (01:42→21:20)
[2020-11-02] MEDS: Melatonin 3 MG TABLET PO PRN (01:44)
[2020-11-02] MEDS: Vancomycin 1,250 MG/262.5 ML IV.SOLN IVPB SCH ×3 (01:50→16:51)
[2020-11-02] MEDS: *HR* Heparin 5,000 UNIT/ML VIAL SQ SCH ×4 (05:46→21:21)
[2020-11-02 06:58] LABS: Basophils % 0.1 %; Hematocrit 30.7 % (35.3-44.9); Hemoglobin 10.2 g/dL (11.5-15.4); Lymphocytes # 0.8 K/mcL (0.6-4.6); Lymphocytes % 9.7 %; Mean Corpuscular HGB Conc 33.2 g/dL (31.6-35.5); Mean Corpuscular Hemoglobin 29.7 pg (28.0-33.3); Mean Corpuscular Volume 89.5 fL (83.0-100.0); Mean Platelet Volume 10.5 fL (9.4-12.4); Monocytes # 0.6 K/mcL (0.0-1.3); Monocytes % 7.7 %; Neutrophils # 6.6 K/mcL (1.6-8.9); Platelet Count 218 K/mcL (140-400); Red Blood Count 3.43 M/mcL (3.82-4.97); Red Cell Distribution Width 13.2 % (11.5-14.5); Segmented Neutrophils % 81.5 %; White Blood Count 8.1 K/mcL (4.3-11.1)
[2020-11-02 07:16] LABS: Alanine Aminotransferase 41 Units/L (7-52); Albumin 2.9 g/dL (3.5-5.7); Albumin/Globulin Ratio 0.9 (1.1-2.2); Alkaline Phosphatase 113 Units/L (34-104); Aspartate Amino Transferase 42 Units/L (13-39); BUN/Creatinine Ratio 12 (6-26); Bilirubin,Total 0.4 mg/dL (0.3-1.0); Blood Urea Nitrogen 8 mg/dL (6-20); Calcium 8.8 mg/dL (8.6-10.3); Carbon Dioxide 23 mEq/L (23-29); Chloride 106 mEq/L (98-107); Globulin 3.3 g/dL (2.4-3.5); Glucose 189 mg/dL (70-105); Magnesium 1.8 mg/dL (1.6-2.6); Osmolality,Calculated 289 (280-300); Phosphorous 4.1 mg/dL (2.7-4.5); Potassium 4.3 mEq/L (3.5-5.1); Sodium 138 mEq/L (136-145); Total Protein 6.2 g/dL (6.4-8.9); eGFR For African Americans > 60 (> 60); eGFR For Non-African Americans > 60 (> 60)
[2020-11-02 07:19] LABS: % Iron Saturation 13 % (15-50); Iron 30 mcg/dL (50-170); Transferrin 171 mg/dL (203-362)
[2020-11-02 07:37] LABS: Ferritin 137 ng/mL (10-120)
[2020-11-02 07:44] LABS: Folate 13.5 ng/mL (3.0-16.0)
[2020-11-02] MEDS: Lactobacillus 1 EACH CAP.SPRINK PO SCH ×2 (08:48→21:21)
[2020-11-02] MEDS: BuPROPion XL (24 HR) 150 MG TABLET PO SCH (08:48)
[2020-11-02] MEDS: Gabapentin 300 MG CAPSULE PO SCH ×3 (08:48→21:20)
[2020-11-02] MEDS: clonazePAM 1 MG TABLET PO SCH ×2 (08:48→21:20)
[2020-11-02] MEDS ORDERED: cefTRIAXone 2,000 MG in Water for inj. (sterile) 20 ML IVP SCH (09:00)
[2020-11-02] MEDS: Nicotine 21 MG PATCH.TD24 TD SCH (11:41)
[2020-11-02] MEDS: polyethylene glycoL 3350 17 GM POWD.PACK PO SCH (17:40)
[2020-11-02] MEDS: Sennosides/Docusate Sodium TABLET PO SCH (21:20)
[2020-11-03] MEDS: Melatonin 3 MG TABLET PO PRN (00:54)
[2020-11-03] MEDS: *HR* Heparin 5,000 UNIT/ML VIAL SQ SCH ×3 (05:25→21:43)
[2020-11-03 06:48] LABS: Basophils # 0.1 K/mcL (0.0-0.2); Basophils % 0.5 %; Eosinophils # 0.1 K/mcL (0.0-0.6); Eosinophils % 0.8 %; Hematocrit 31.2 % (35.3-44.9); Hemoglobin 10.2 g/dL (11.5-15.4); Immature Granulocytes % 1.2 % (0-4); Lymphocytes # 2.5 K/mcL (0.6-4.6); Mean Corpuscular HGB Conc 32.7 g/dL (31.6-35.5); Mean Corpuscular Hemoglobin 29.7 pg (28.0-33.3); Mean Corpuscular Volume 90.7 fL (83.0-100.0); Mean Platelet Volume 10.4 fL (9.4-12.4); Monocytes # 0.8 K/mcL (0.0-1.3); Monocytes % 8.1 %; Neutrophils # 6.2 K/mcL (1.6-8.9); Platelet Count 222 K/mcL (140-400); Red Blood Count 3.44 M/mcL (3.82-4.97); Red Cell Distribution Width 13.5 % (11.5-14.5); Segmented Neutrophils % 63.4 %; White Blood Count 9.8 K/mcL (4.3-11.1)
[2020-11-03 07:12] LABS: Alanine Aminotransferase 32 Units/L (7-52); Albumin 2.8 g/dL (3.5-5.7); Albumin/Globulin Ratio 0.9 (1.1-2.2); Alkaline Phosphatase 100 Units/L (34-104); Aspartate Amino Transferase 27 Units/L (13-39); BUN/Creatinine Ratio 12 (6-26); Bilirubin,Total 0.3 mg/dL (0.3-1.0); Blood Urea Nitrogen 8 mg/dL (6-20); Calcium 8.6 mg/dL (8.6-10.3); Carbon Dioxide 25 mEq/L (23-29); Chloride 106 mEq/L (98-107); Glucose 102 mg/dL (70-105); Magnesium 1.8 mg/dL (1.6-2.6); Osmolality,Calculated 285 (280-300); Phosphorous 4.6 mg/dL (2.7-4.5); Potassium 4.2 mEq/L (3.5-5.1); Sodium 138 mEq/L (136-145); Total Protein 5.8 g/dL (6.4-8.9); eGFR For African Americans > 60 (> 60); eGFR For Non-African Americans > 60 (> 60)
[2020-11-03] MEDS: Lactobacillus 1 EACH CAP.SPRINK PO SCH ×2 (10:03→21:11)
[2020-11-03] MEDS: BuPROPion XL (24 HR) 150 MG TABLET PO SCH (10:03)
[2020-11-03] MEDS: Gabapentin 300 MG CAPSULE PO SCH ×3 (10:04→21:11)
[2020-11-03] MEDS: Sennosides/Docusate Sodium TABLET PO SCH ×2 (10:04→21:10)
[2020-11-03] MEDS: clonazePAM 1 MG TABLET PO SCH ×2 (10:04→21:11)
[2020-11-03] MEDS: polyethylene glycoL 3350 17 GM POWD.PACK PO SCH (10:04)
[2020-11-03] MEDS ORDERED: cefTRIAXone 2,000 MG in Water for inj. (sterile) 20 ML IVP SCH (13:30)
[2020-11-03] MEDS ORDERED: 0.9 % Sodium Chloride 250 ML ONE (13:36)
[2020-11-03] MEDS: *HR* OxyCODONE/APAP 7.5/325 TABLET PO PRN (13:37)
[2020-11-03] MEDS: Nicotine 21 MG PATCH.TD24 TD SCH (14:38)
[2020-11-03] MEDS ORDERED: *HR* FentaNYL (PF) 100 MCG/2 ML VIAL ONE (15:18)
[2020-11-03] MEDS ORDERED: *HR* Midazolam HCl 2 MG/2 ML VIAL ONE (15:18)
[2020-11-03] MEDS ORDERED: *HR* Propofol 200 MG/20 ML VIAL IVP ONE ×2 (15:18→17:15)
[2020-11-03] MEDS ORDERED: *HR* Succinylcholine 200 MG/10 ML VIAL IVP ONE (15:18)
[2020-11-03] MEDS ORDERED: Ondansetron 4 MG/2 ML VIAL ONE (15:18)
[2020-11-03] MEDS ORDERED: Lidocaine -MPF 2% 2 ML VIAL ONE (15:19)
[2020-11-03] MEDS ORDERED: Bupivacaine 0.5%-Epi 1:200,000 50 ML VIAL ONE (16:28)
[2020-11-03] MEDS ORDERED: Lidocaine HCL 4 ML Topical Solution (Laryng-O-Jet Kit Sterile Pak) TP ONE (16:37)
[2020-11-03] MEDS ORDERED: Naloxone 0.4 MG/ML INJ IVP PRN ×3 (16:46→20:29)
[2020-11-03] MEDS ORDERED: Albuterol 2.5 MG/3 ML NEBULIZER IH PRN ×2 (16:46→20:29)
[2020-11-03] MEDS ORDERED: Ondansetron 4 MG/2 ML VIAL IVP PRN ×2 (16:46→20:29)
[2020-11-03] MEDS ORDERED: Nitroglycerin 0.4 MG TAB.SUBL SL PRN ×2 (16:46→20:29)
[2020-11-03] MEDS: *HR* HYDROmorphone (PF) 1 MG/ML SYRINGE IVP PRN ×4 (19:13→19:28)
[2020-11-03] MEDS ORDERED: Sennosides 8.6 MG TABLET PO PRN ×2 (19:20→21:00)
[2020-11-03] MEDS ORDERED: MOM Conc 10 ML UD.LIQ PO PRN (19:20)
[2020-11-03] MEDS ORDERED: Ringers Solution, Lactated 1,000 ML IVC SCH (19:30)
[2020-11-03] MEDS: *HR* FentaNYL (PF) 100 MCG/2 ML VIAL IVP PRN ×3 (19:35→19:47)
[2020-11-03] MEDS ORDERED: Loratadine 10 MG TABLET PO PRN (20:29)
[2020-11-03] MEDS ORDERED: Dextrose Gel 15 GM/37.5 ML TUBE PO PRN ×2 (20:29)
[2020-11-03] MEDS ORDERED: D5% in Water 1,000 ML IVC PRN (20:29)
[2020-11-03] MEDS ORDERED: *HR* Labetalol 20 MG/4 ML SYRINGE IVP PRN (20:29)
[2020-11-03] MEDS ORDERED: *HR* HYDROmorphone 2 MG TABLET PO PRN (20:29)
[2020-11-03] MEDS ORDERED: *HR* Dextrose 50 % in Water (Vial) 50 ML VIAL IVP PRN (20:29)
[2020-11-03] MEDS ORDERED: *HR* OxyCODONE Immed Rel 5 MG TABLET PO PRN (20:29)
[2020-11-03] MEDS ORDERED: Perflutren Lipid Microsphere 1.3 ML in 0.9 % Sodium Chloride 8.7 ML IVP PRN (20:29)
[2020-11-03] MEDS ORDERED: *HR* FentaNYL (PF) 100 MCG/2 ML VIAL IVP PRN (20:29)
[2020-11-03] MEDS ORDERED: *HR* HYDROmorphone (PF) 1 MG/ML SYRINGE IVP PRN (20:29)
[2020-11-03] MEDS ORDERED: *HR* HYDROmorphone 2 MG TABLET PO ONE (20:58)
[2020-11-03] MEDS: Ringers Solution, Lactated 1,000 ML IVC SCH (21:12)
[2020-11-04] MEDS ORDERED: *HR* HYDROmorphone 2 MG TABLET PO ONE (00:10)
[2020-11-04 02:16] LABS: Basophils % 0.2 %; Hematocrit 35.4 % (35.3-44.9); Hemoglobin 11.3 g/dL (11.5-15.4); Immature Granulocytes % 1.4 % (0-4); Lymphocytes # 0.8 K/mcL (0.6-4.6); Lymphocytes % 7.5 %; Mean Corpuscular HGB Conc 31.9 g/dL (31.6-35.5); Mean Corpuscular Hemoglobin 29.6 pg (28.0-33.3); Mean Corpuscular Volume 92.7 fL (83.0-100.0); Mean Platelet Volume 10.3 fL (9.4-12.4); Monocytes # 0.5 K/mcL (0.0-1.3); Monocytes % 4.4 %; Neutrophils # 9.6 K/mcL (1.6-8.9); Platelet Count 265 K/mcL (140-400); Red Blood Count 3.82 M/mcL (3.82-4.97); Red Cell Distribution Width 13.5 % (11.5-14.5); Segmented Neutrophils % 86.5 %; White Blood Count 11.1 K/mcL (4.3-11.1)
[2020-11-04 02:37] LABS: BUN/Creatinine Ratio 11 (6-26); Blood Urea Nitrogen 9 mg/dL (6-20); Calcium 8.6 mg/dL (8.6-10.3); Carbon Dioxide 24 mEq/L (23-29); Chloride 101 mEq/L (98-107); Glucose 214 mg/dL (70-105); Magnesium 1.5 mg/dL (1.6-2.6); Osmolality,Calculated 283 (280-300); Potassium 4.5 mEq/L (3.5-5.1); Sodium 134 mEq/L (136-145); eGFR For African Americans > 60 (> 60); eGFR For Non-African Americans > 60 (> 60)
[2020-11-04] MEDS: *HR* Heparin 5,000 UNIT/ML VIAL SQ SCH ×3 (04:13→21:12)
[2020-11-04] MEDS: Acetaminophen 325 MG TABLET PO PRN ×2 (04:13→11:34)
[2020-11-04] MEDS: *HR* OxyCODONE/APAP 7.5/325 TABLET PO PRN ×3 (05:52→15:09)
[2020-11-04] MEDS: BuPROPion XL (24 HR) 150 MG TABLET PO SCH (07:58)
[2020-11-04] MEDS: Sennosides/Docusate Sodium TABLET PO SCH ×2 (08:00→21:12)
[2020-11-04] MEDS: polyethylene glycoL 3350 17 GM POWD.PACK PO SCH (08:00)
[2020-11-04] MEDS: Lactobacillus 1 EACH CAP.SPRINK PO SCH ×2 (08:00→21:11)
[2020-11-04] MEDS: amLODIPine 5 MG TABLET PO SCH (08:00)
[2020-11-04] MEDS: clonazePAM 1 MG TABLET PO SCH ×2 (09:00→21:11)
[2020-11-04] MEDS ORDERED: amLODIPine 5 MG TABLET PO SCH (09:00)
[2020-11-04] MEDS: Gabapentin 300 MG CAPSULE PO SCH ×3 (09:00→21:11)
[2020-11-04] MEDS: Nicotine 21 MG PATCH.TD24 TD SCH (11:37)
[2020-11-04] MEDS: cefTRIAXone 2,000 MG in Water for inj. (sterile) 20 ML IVP SCH (13:34)
[2020-11-04] MEDS: Ringers Solution, Lactated 1,000 ML IVC SCH ×2 (19:28→23:16)
[2020-11-04] MEDS: Vancomycin 1,250 MG/262.5 ML IV.SOLN IVPB SCH (21:11)
[2020-11-04] MEDS: Melatonin 3 MG TABLET PO PRN (23:55)
[2020-11-05] MEDS ORDERED: Acetaminophen IV 1,000 MG/100 ML BAG IVPB ONE ×2 (00:41→19:59)
[2020-11-05] MEDS: *HR* OxyCODONE/APAP 7.5/325 TABLET PO PRN ×2 (02:16→08:09)
[2020-11-05] MEDS: Vancomycin 1,250 MG/262.5 ML IV.SOLN IVPB SCH ×3 (03:36→19:50)
[2020-11-05] MEDS: *HR* Heparin 5,000 UNIT/ML VIAL SQ SCH ×3 (05:32→19:51)
[2020-11-05] MEDS: Sennosides/Docusate Sodium TABLET PO SCH (08:09)
[2020-11-05] MEDS: Lactobacillus 1 EACH CAP.SPRINK PO SCH ×2 (08:10→19:49)
[2020-11-05] MEDS: Gabapentin 300 MG CAPSULE PO SCH ×3 (08:10→19:50)
[2020-11-05] MEDS: amLODIPine 5 MG TABLET PO SCH (08:10)
[2020-11-05] MEDS: BuPROPion XL (24 HR) 150 MG TABLET PO SCH (08:10)
[2020-11-05] MEDS: clonazePAM 1 MG TABLET PO SCH (08:10)
[2020-11-05] MEDS: polyethylene glycoL 3350 17 GM POWD.PACK PO SCH (08:11)
[2020-11-05] MEDS ORDERED: *HR* OxyCODONE/APAP 10/325 TABLET PO PRN (10:59)
[2020-11-05] MEDS ORDERED: *HR* FentaNYL PATCH 25 MCG PATCH TD SCH (14:45)
[2020-11-05] MEDS: Nicotine 21 MG PATCH.TD24 TD SCH (16:32)
[2020-11-05] MEDS: cefTRIAXone 2,000 MG in Water for inj. (sterile) 20 ML IVP SCH (16:32)
[2020-11-05] MEDS: Ringers Solution, Lactated 1,000 ML IVC SCH (16:32)
[2020-11-05] MEDS: Morphine Sulfate 2 MG/ML SYRINGE IVP PRN (18:35)
[2020-11-05 19:17] LABS: Basophils # 0.1 K/mcL (0.0-0.2); Basophils % 0.6 %; Eosinophils # 0.2 K/mcL (0.0-0.6); Eosinophils % 2.1 %; Hematocrit 34.4 % (35.3-44.9); Hemoglobin 11.3 g/dL (11.5-15.4); Immature Granulocytes % 1.8 % (0-4); Lymphocytes # 2.9 K/mcL (0.6-4.6); Lymphocytes % 25.2 %; Mean Corpuscular HGB Conc 32.8 g/dL (31.6-35.5); Mean Corpuscular Volume 91.2 fL (83.0-100.0); Mean Platelet Volume 9.7 fL (9.4-12.4); Monocytes # 1.1 K/mcL (0.0-1.3); Monocytes % 9.1 %; Neutrophils # 7.1 K/mcL (1.6-8.9); Platelet Count 286 K/mcL (140-400); Red Blood Count 3.77 M/mcL (3.82-4.97); Red Cell Distribution Width 13.6 % (11.5-14.5); Segmented Neutrophils % 61.2 %; White Blood Count 11.6 K/mcL (4.3-11.1)
[2020-11-05 19:34] LABS: BUN/Creatinine Ratio 10 (6-26); Blood Urea Nitrogen 7 mg/dL (6-20); Calcium 8.6 mg/dL (8.6-10.3); Carbon Dioxide 28 mEq/L (23-29); Chloride 101 mEq/L (98-107); Glucose 94 mg/dL (70-105); Magnesium 1.6 mg/dL (1.6-2.6); Osmolality,Calculated 276 (280-300); Sodium 134 mEq/L (136-145); eGFR For African Americans > 60 (> 60); eGFR For Non-African Americans > 60 (> 60)
[2020-11-05] MEDS: clonazePAM 0.5 MG TABLET PO PRN (19:50)
[2020-11-06] MEDS: Morphine Sulfate 2 MG/ML SYRINGE IVP PRN ×2 (00:20→06:20)
[2020-11-06] MEDS: *HR* Heparin 5,000 UNIT/ML VIAL SQ SCH ×3 (02:24→21:06)
[2020-11-06] MEDS: clonazePAM 0.5 MG TABLET PO PRN ×3 (06:19→22:40)
[2020-11-06 06:45] LABS: Basophils # 0.1 K/mcL (0.0-0.2); Basophils % 0.5 %; Eosinophils # 0.2 K/mcL (0.0-0.6); Eosinophils % 1.5 %; Hematocrit 34.6 % (35.3-44.9); Hemoglobin 11.2 g/dL (11.5-15.4); Immature Granulocytes % 1.4 % (0-4); Lymphocytes # 3.2 K/mcL (0.6-4.6); Mean Corpuscular HGB Conc 32.4 g/dL (31.6-35.5); Mean Corpuscular Hemoglobin 29.6 pg (28.0-33.3); Mean Corpuscular Volume 91.3 fL (83.0-100.0); Monocytes % 8.6 %; Neutrophils # 7.5 K/mcL (1.6-8.9); Platelet Count 288 K/mcL (140-400); Red Blood Count 3.79 M/mcL (3.82-4.97); Red Cell Distribution Width 13.4 % (11.5-14.5); White Blood Count 12.1 K/mcL (4.3-11.1)
[2020-11-06 07:06] LABS: BUN/Creatinine Ratio 11 (6-26); Blood Urea Nitrogen 8 mg/dL (6-20); Calcium 8.5 mg/dL (8.6-10.3); Carbon Dioxide 30 mEq/L (23-29); Chloride 100 mEq/L (98-107); Glucose 79 mg/dL (70-105); Magnesium 1.7 mg/dL (1.6-2.6); Osmolality,Calculated 275 (280-300); Potassium 3.9 mEq/L (3.5-5.1); Sodium 134 mEq/L (136-145); eGFR For African Americans > 60 (> 60); eGFR For Non-African Americans > 60 (> 60)
[2020-11-06] MEDS ORDERED: *HR* HYDROmorphone 4 MG TABLET PO PRN (09:11)
[2020-11-06] MEDS: Lactobacillus 1 EACH CAP.SPRINK PO SCH ×2 (09:57→21:07)
[2020-11-06] MEDS: amLODIPine 5 MG TABLET PO SCH (09:58)
[2020-11-06] MEDS: Gabapentin 300 MG CAPSULE PO SCH ×3 (09:58→21:07)
[2020-11-06] MEDS: BuPROPion XL (24 HR) 150 MG TABLET PO SCH (09:59)
[2020-11-06] MEDS: *HR* HYDROmorphone 2 MG TABLET PO PRN ×4 (10:21→22:40)
[2020-11-06] MEDS: polyethylene glycoL 3350 17 GM POWD.PACK PO SCH (14:30)
[2020-11-06] MEDS: Nicotine 21 MG PATCH.TD24 TD SCH (14:33)
[2020-11-07] MEDS: *HR* HYDROmorphone 2 MG TABLET PO PRN ×5 (02:42→19:46)
[2020-11-07 05:49] LABS: Basophils # 0.1 K/mcL (0.0-0.2); Basophils % 0.5 %; Eosinophils # 0.2 K/mcL (0.0-0.6); Eosinophils % 1.1 %; Hematocrit 35.1 % (35.3-44.9); Hemoglobin 11.5 g/dL (11.5-15.4); Immature Granulocytes % 2.5 % (0-4); Lymphocytes # 3.4 K/mcL (0.6-4.6); Lymphocytes % 25.8 %; Mean Corpuscular HGB Conc 32.8 g/dL (31.6-35.5); Mean Corpuscular Hemoglobin 29.4 pg (28.0-33.3); Mean Corpuscular Volume 89.8 fL (83.0-100.0); Mean Platelet Volume 10.1 fL (9.4-12.4); Monocytes # 1.1 K/mcL (0.0-1.3); Monocytes % 8.6 %; Neutrophils # 8.2 K/mcL (1.6-8.9); Platelet Count 343 K/mcL (140-400); Red Blood Count 3.91 M/mcL (3.82-4.97); Red Cell Distribution Width 13.6 % (11.5-14.5); Segmented Neutrophils % 61.5 %; White Blood Count 13.3 K/mcL (4.3-11.1)
[2020-11-07] MEDS: *HR* Heparin 5,000 UNIT/ML VIAL SQ SCH ×3 (06:02→19:57)
[2020-11-07 06:06] LABS: BUN/Creatinine Ratio 14 (6-26); Blood Urea Nitrogen 10 mg/dL (6-20); Calcium 8.8 mg/dL (8.6-10.3); Carbon Dioxide 29 mEq/L (23-29); Chloride 98 mEq/L (98-107); Glucose 100 mg/dL (70-105); Magnesium 1.9 mg/dL (1.6-2.6); Osmolality,Calculated 275 (280-300); Sodium 133 mEq/L (136-145); eGFR For African Americans > 60 (> 60); eGFR For Non-African Americans > 60 (> 60)
[2020-11-07] MEDS: Lactobacillus 1 EACH CAP.SPRINK PO SCH ×2 (07:56→19:45)
[2020-11-07] MEDS: BuPROPion XL (24 HR) 150 MG TABLET PO SCH (07:56)
[2020-11-07] MEDS: Gabapentin 300 MG CAPSULE PO SCH ×3 (07:56→19:45)
[2020-11-07] MEDS: amLODIPine 5 MG TABLET PO SCH (07:56)
[2020-11-07] MEDS: polyethylene glycoL 3350 17 GM POWD.PACK PO SCH (07:57)
[2020-11-07] MEDS: clonazePAM 0.5 MG TABLET PO PRN ×3 (08:02→19:46)
[2020-11-07] MEDS ORDERED: Lactulose Oral Soln 20 GM/30 ML UDC PO ONE (10:02)
[2020-11-07] MEDS ORDERED: Sennosides/Docusate Sodium TABLET PO ONE (10:03)
[2020-11-07] MEDS: Nicotine 21 MG PATCH.TD24 TD SCH (12:24)
[2020-11-07 13:33] LABS: C-Reactive Protein 76 mg/L (Less than 10)
[2020-11-07] MEDS: levoFLOXacin 750 MG/150 ML 750 MG/150 ML BAG IVPB SCH (18:05)
[2020-11-08] MEDS: *HR* HYDROmorphone 2 MG TABLET PO PRN ×5 (01:10→20:11)
[2020-11-08] MEDS: MOM Conc 10 ML UD.LIQ PO PRN (01:19)
[2020-11-08] MEDS: Melatonin 3 MG TABLET PO PRN (02:00)
[2020-11-08] MEDS: *HR* Heparin 5,000 UNIT/ML VIAL SQ SCH ×3 (05:39→20:18)
[2020-11-08 05:57] LABS: Basophils % 0.5 %; Eosinophils # 0.1 K/mcL (0.0-0.6); Eosinophils % 1.7 %; Hematocrit 30.8 % (35.3-44.9); Immature Granulocytes % 1.4 % (0-4); Lymphocytes # 1.8 K/mcL (0.6-4.6); Lymphocytes % 21.7 %; Mean Corpuscular HGB Conc 32.5 g/dL (31.6-35.5); Mean Corpuscular Hemoglobin 29.2 pg (28.0-33.3); Mean Corpuscular Volume 90.1 fL (83.0-100.0); Mean Platelet Volume 9.6 fL (9.4-12.4); Monocytes # 0.7 K/mcL (0.0-1.3); Monocytes % 8.9 %; Neutrophils # 5.5 K/mcL (1.6-8.9); Platelet Count 249 K/mcL (140-400); Red Blood Count 3.42 M/mcL (3.82-4.97); Red Cell Distribution Width 13.4 % (11.5-14.5); Segmented Neutrophils % 65.8 %; White Blood Count 8.4 K/mcL (4.3-11.1)
[2020-11-08 06:20] LABS: BUN/Creatinine Ratio 15 (6-26); Blood Urea Nitrogen 10 mg/dL (6-20); Calcium 8.4 mg/dL (8.6-10.3); Carbon Dioxide 30 mEq/L (23-29); Chloride 102 mEq/L (98-107); Glucose 137 mg/dL (70-105); Magnesium 1.9 mg/dL (1.6-2.6); Osmolality,Calculated 283 (280-300); Potassium 3.8 mEq/L (3.5-5.1); Sodium 136 mEq/L (136-145); eGFR For African Americans > 60 (> 60); eGFR For Non-African Americans > 60 (> 60)
[2020-11-08] MEDS: Gabapentin 300 MG CAPSULE PO SCH ×3 (09:48→20:10)
[2020-11-08] MEDS: BuPROPion XL (24 HR) 150 MG TABLET PO SCH (09:48)
[2020-11-08] MEDS: Lactobacillus 1 EACH CAP.SPRINK PO SCH ×2 (09:48→20:10)
[2020-11-08] MEDS: amLODIPine 5 MG TABLET PO SCH (09:48)
[2020-11-08] MEDS: clonazePAM 0.5 MG TABLET PO PRN ×2 (09:49→20:12)
[2020-11-08] MEDS: polyethylene glycoL 3350 17 GM POWD.PACK PO SCH (09:55)
[2020-11-08] MEDS: Nicotine 21 MG PATCH.TD24 TD SCH (09:56)
[2020-11-08] MEDS ORDERED: Lactulose Oral Soln 20 GM/30 ML UDC PO ONE (10:00)
[2020-11-08] MEDS: levoFLOXacin 750 MG/150 ML 750 MG/150 ML BAG IVPB SCH (18:16)
[2020-11-08] MEDS: Ondansetron 4 MG/2 ML VIAL IVP PRN (18:16)
[2020-11-08] MEDS ORDERED: MOM Conc 10 ML UD.LIQ PO ONE (18:22)
[2020-11-09] MEDS: *HR* HYDROmorphone 2 MG TABLET PO PRN ×6 (00:26→23:52)
[2020-11-09] MEDS: Melatonin 3 MG TABLET PO PRN (02:34)
[2020-11-09] MEDS: Ondansetron 4 MG/2 ML VIAL IVP PRN (04:45)
[2020-11-09] MEDS: *HR* Heparin 5,000 UNIT/ML VIAL SQ SCH ×3 (04:47→19:50)
[2020-11-09 05:08] LABS: Basophils % 0.1 %; Eosinophils # 0.1 K/mcL (0.0-0.6); Hematocrit 30.6 % (35.3-44.9); Hemoglobin 10.2 g/dL (11.5-15.4); Lymphocytes # 1.7 K/mcL (0.6-4.6); Lymphocytes % 20.1 %; Mean Corpuscular HGB Conc 33.3 g/dL (31.6-35.5); Mean Corpuscular Hemoglobin 30.2 pg (28.0-33.3); Mean Corpuscular Volume 90.5 fL (83.0-100.0); Mean Platelet Volume 9.6 fL (9.4-12.4); Monocytes # 0.8 K/mcL (0.0-1.3); Monocytes % 9.2 %; Neutrophils # 5.7 K/mcL (1.6-8.9); Platelet Count 260 K/mcL (140-400); Red Blood Count 3.38 M/mcL (3.82-4.97); Red Cell Distribution Width 13.3 % (11.5-14.5); Segmented Neutrophils % 68.6 %; White Blood Count 8.3 K/mcL (4.3-11.1)
[2020-11-09 05:27] LABS: BUN/Creatinine Ratio 15 (6-26); Blood Urea Nitrogen 10 mg/dL (6-20); Calcium 8.5 mg/dL (8.6-10.3); Carbon Dioxide 30 mEq/L (23-29); Chloride 102 mEq/L (98-107); Glucose 88 mg/dL (70-105); Magnesium 1.8 mg/dL (1.6-2.6); Osmolality,Calculated 280 (280-300); Potassium 4.5 mEq/L (3.5-5.1); Sodium 136 mEq/L (136-145); eGFR For African Americans > 60 (> 60); eGFR For Non-African Americans > 60 (> 60)
[2020-11-09] MEDS: polyethylene glycoL 3350 17 GM POWD.PACK PO SCH ×2 (09:08→09:24)
[2020-11-09] MEDS: BuPROPion XL (24 HR) 150 MG TABLET PO SCH (09:10)
[2020-11-09] MEDS: Lactobacillus 1 EACH CAP.SPRINK PO SCH ×2 (09:11→19:49)
[2020-11-09] MEDS: clonazePAM 0.5 MG TABLET PO PRN ×2 (09:11→19:49)
[2020-11-09] MEDS: Gabapentin 300 MG CAPSULE PO SCH ×3 (09:42→19:49)
[2020-11-09] MEDS: amLODIPine 5 MG TABLET PO SCH (09:44)
[2020-11-09] MEDS: Calcium Gluconate 1gm/50mL 1 GM/50 ML BAG IVPB SCH ×2 (10:55→12:09)
[2020-11-09] MEDS: Nicotine 21 MG PATCH.TD24 TD SCH (12:06)
[2020-11-09] MEDS ORDERED: *HR* FentaNYL PATCH 25 MCG PATCH TD SCH (13:15)
[2020-11-09] MEDS: levoFLOXacin 750 MG/150 ML 750 MG/150 ML BAG IVPB SCH (18:21)
[2020-11-09] MEDS: MOM Conc 10 ML UD.LIQ PO PRN (19:49)
[2020-11-10] MEDS: Melatonin 3 MG TABLET PO PRN (02:40)
[2020-11-10] MEDS: *HR* HYDROmorphone 2 MG TABLET PO PRN ×4 (04:10→20:35)
[2020-11-10] MEDS: *HR* Heparin 5,000 UNIT/ML VIAL SQ SCH ×2 (04:34→16:20)
[2020-11-10 04:39] LABS: Hematocrit 29.7 % (35.3-44.9); Hemoglobin 9.9 g/dL (11.5-15.4); Mean Corpuscular HGB Conc 33.3 g/dL (31.6-35.5); Mean Corpuscular Hemoglobin 29.6 pg (28.0-33.3); Mean Corpuscular Volume 88.7 fL (83.0-100.0); Mean Platelet Volume 9.5 fL (9.4-12.4); Platelet Count 239 K/mcL (140-400); Red Blood Count 3.35 M/mcL (3.82-4.97); Red Cell Distribution Width 13.3 % (11.5-14.5)
[2020-11-10 04:56] LABS: BUN/Creatinine Ratio 11 (6-26); Blood Urea Nitrogen 8 mg/dL (6-20); Calcium 8.5 mg/dL (8.6-10.3); Carbon Dioxide 29 mEq/L (23-29); Chloride 103 mEq/L (98-107); Glucose 91 mg/dL (70-105); Osmolality,Calculated 280 (280-300); Potassium 3.8 mEq/L (3.5-5.1); Sodium 136 mEq/L (136-145); eGFR For African Americans > 60 (> 60); eGFR For Non-African Americans > 60 (> 60)
[2020-11-10] MEDS: Gabapentin 300 MG CAPSULE PO SCH ×3 (11:25→20:48)
[2020-11-10] MEDS: amLODIPine 5 MG TABLET PO SCH (11:26)
[2020-11-10] MEDS: BuPROPion XL (24 HR) 150 MG TABLET PO SCH (11:26)
[2020-11-10] MEDS: Lactobacillus 1 EACH CAP.SPRINK PO SCH ×2 (11:27→20:47)
[2020-11-10] MEDS: polyethylene glycoL 3350 17 GM POWD.PACK PO SCH (11:27)
[2020-11-10] MEDS: Calcium Gluconate 1gm/50mL 1 GM/50 ML BAG IVPB SCH ×2 (11:28→12:32)
[2020-11-10] MEDS: clonazePAM 0.5 MG TABLET PO PRN ×2 (11:45→19:03)
[2020-11-10] MEDS: Nicotine 21 MG PATCH.TD24 TD SCH (12:34)
[2020-11-10] MEDS: Ondansetron 4 MG/2 ML VIAL IVP PRN (13:09)
[2020-11-10] MEDS: levoFLOXacin 750 MG/150 ML 750 MG/150 ML BAG IVPB SCH (19:03)
[2020-11-10] MEDS: MOM Conc 10 ML UD.LIQ PO PRN (20:47)
[2020-11-11] MEDS: *HR* HYDROmorphone 2 MG TABLET PO PRN ×6 (00:33→21:54)
[2020-11-11] MEDS: Ondansetron 4 MG/2 ML VIAL IVP PRN ×2 (05:11→20:22)
[2020-11-11] MEDS: amLODIPine 5 MG TABLET PO SCH (08:54)
[2020-11-11] MEDS: Gabapentin 300 MG CAPSULE PO SCH (08:54)
[2020-11-11] MEDS: Lactobacillus 1 EACH CAP.SPRINK PO SCH ×2 (08:55→20:22)
[2020-11-11] MEDS: BuPROPion XL (24 HR) 150 MG TABLET PO SCH (08:55)
[2020-11-11] MEDS: polyethylene glycoL 3350 17 GM POWD.PACK PO SCH (08:57)
[2020-11-11] MEDS ORDERED: clonazePAM 0.5 MG TABLET PO ONE (10:51)
[2020-11-11] MEDS: Nicotine 21 MG PATCH.TD24 TD SCH (11:17)
[2020-11-11] MEDS ORDERED: clonazePAM 0.5 MG TABLET PO STA (11:19)
[2020-11-11] MEDS: *HR* Heparin 5,000 UNIT/ML VIAL SQ SCH ×4 (12:32→21:31)
[2020-11-11] MEDS: Ibuprofen 800 MG TABLET PO SCH ×2 (13:20→20:22)
[2020-11-11] MEDS: Gabapentin 400 MG CAPSULE PO SCH ×2 (15:45→20:22)
[2020-11-11] MEDS ORDERED: Lactulose Oral Soln 20 GM/30 ML UDC PO ONE (16:41)
[2020-11-11] MEDS: levoFLOXacin 750 MG/150 ML 750 MG/150 ML BAG IVPB SCH (17:17)
[2020-11-11] MEDS: clonazePAM 1 MG TABLET PO SCH (20:23)
[2020-11-11] MEDS: MOM Conc 10 ML UD.LIQ PO PRN (20:24)
[2020-11-11] MEDS: Melatonin 3 MG TABLET PO PRN (23:29)
[2020-11-12] MEDS: *HR* HYDROmorphone 2 MG TABLET PO PRN ×4 (03:22→22:00)
[2020-11-12] MEDS: *HR* Heparin 5,000 UNIT/ML VIAL SQ SCH ×3 (05:01→21:07)
[2020-11-12] MEDS: Ibuprofen 800 MG TABLET PO SCH ×3 (05:02→21:07)
[2020-11-12] MEDS: amLODIPine 5 MG TABLET PO SCH (08:28)
[2020-11-12] MEDS: BuPROPion XL (24 HR) 150 MG TABLET PO SCH (08:28)
[2020-11-12] MEDS: clonazePAM 1 MG TABLET PO SCH ×2 (08:29→21:07)
[2020-11-12] MEDS: polyethylene glycoL 3350 17 GM POWD.PACK PO SCH (08:29)
[2020-11-12] MEDS: Gabapentin 400 MG CAPSULE PO SCH ×3 (08:29→21:07)
[2020-11-12] MEDS: Lactobacillus 1 EACH CAP.SPRINK PO SCH ×2 (08:29→21:07)
[2020-11-12] MEDS ORDERED: *HR* FentaNYL PATCH 12 MCG PATCH TD SCH (08:30)
[2020-11-12] MEDS ORDERED: Lactulose Oral Soln 20 GM/30 ML UDC PO ONE (08:34)
[2020-11-12] MEDS ORDERED: Loratadine/Pseudophed (12 HR) 1 EACH TABLET PO ONE (11:42)
[2020-11-12] MEDS: Nicotine 21 MG PATCH.TD24 TD SCH (12:34)
[2020-11-12] MEDS: Fluticasone Propionate Nasal 50 MCG/SPRAY BOTTLE NS SCH (15:10)
[2020-11-12] MEDS: levoFLOXacin 750 MG/150 ML 750 MG/150 ML BAG IVPB SCH (18:26)
[2020-11-12] MEDS: Baclofen 10 MG TABLET PO PRN (19:45)
[2020-11-12] MEDS: Melatonin 3 MG TABLET PO PRN (22:00)
[2020-11-12] MEDS: Ondansetron 4 MG/2 ML VIAL IVP PRN (22:05)
[2020-11-13] MEDS: *HR* HYDROmorphone 2 MG TABLET PO PRN ×2 (03:46→18:36)
[2020-11-13] MEDS: Baclofen 10 MG TABLET PO PRN (03:46)
[2020-11-13 04:27] LABS: Hematocrit 29.8 % (35.3-44.9); Hemoglobin 9.8 g/dL (11.5-15.4); Mean Corpuscular HGB Conc 32.9 g/dL (31.6-35.5); Mean Corpuscular Volume 91.1 fL (83.0-100.0); Mean Platelet Volume 10.1 fL (9.4-12.4); Platelet Count 207 K/mcL (140-400); Red Blood Count 3.27 M/mcL (3.82-4.97); Red Cell Distribution Width 13.5 % (11.5-14.5); White Blood Count 6.6 K/mcL (4.3-11.1)
[2020-11-13 04:45] LABS: BUN/Creatinine Ratio 18 (6-26); Blood Urea Nitrogen 11 mg/dL (6-20); Calcium 8.3 mg/dL (8.6-10.3); Carbon Dioxide 27 mEq/L (23-29); Chloride 107 mEq/L (98-107); Glucose 85 mg/dL (70-105); Osmolality,Calculated 283 (280-300); Potassium 4.1 mEq/L (3.5-5.1); Sodium 137 mEq/L (136-145); eGFR For African Americans > 60 (> 60); eGFR For Non-African Americans > 60 (> 60)
[2020-11-13] MEDS: *HR* Heparin 5,000 UNIT/ML VIAL SQ SCH ×2 (05:30→14:36)
[2020-11-13] MEDS: Ibuprofen 800 MG TABLET PO SCH ×2 (05:34→14:45)
[2020-11-13] MEDS: clonazePAM 1 MG TABLET PO SCH ×2 (09:15→21:24)
[2020-11-13] MEDS: BuPROPion XL (24 HR) 150 MG TABLET PO SCH (09:15)
[2020-11-13] MEDS: Loratadine 10 MG TABLET PO SCH (09:15)
[2020-11-13] MEDS: Multivit/Ca/Min/Fe/FA 1 TAB TABLET PO SCH (09:15)
[2020-11-13] MEDS: polyethylene glycoL 3350 17 GM POWD.PACK PO SCH (09:15)
[2020-11-13] MEDS: NIFEdipine XL (24 HR) 60 MG TAB.ER.24 PO SCH (09:16)
[2020-11-13] MEDS: Lactobacillus 1 EACH CAP.SPRINK PO SCH ×2 (09:16→21:24)
[2020-11-13] MEDS: Gabapentin 400 MG CAPSULE PO SCH ×3 (09:16→21:25)
[2020-11-13] MEDS: Fluticasone Propionate Nasal 50 MCG/SPRAY BOTTLE NS SCH (09:19)
[2020-11-13] MEDS: Nicotine 21 MG PATCH.TD24 TD SCH (12:07)
[2020-11-13] MEDS ORDERED: *HR* FentaNYL PATCH 12 MCG PATCH TD SCH (12:30)
[2020-11-13] MEDS: levoFLOXacin 750 MG/150 ML 750 MG/150 ML BAG IVPB SCH (18:37)
[2020-11-14] MEDS: Ibuprofen 800 MG TABLET PO SCH ×3 (00:24→14:14)
[2020-11-14] MEDS: Melatonin 3 MG TABLET PO PRN (01:28)
[2020-11-14] MEDS: Baclofen 10 MG TABLET PO PRN (01:28)
[2020-11-14] MEDS: *HR* Heparin 5,000 UNIT/ML VIAL SQ SCH ×2 (05:07→05:09)
[2020-11-14] MEDS: *HR* HYDROmorphone 2 MG TABLET PO PRN (06:47)
[2020-11-14 07:16] VITALS: BP 138/65; PULSE 60; TEMP 97.8; O2SAT 94
[2020-11-14] MEDS: BuPROPion XL (24 HR) 150 MG TABLET PO SCH (08:09)
[2020-11-14] MEDS: polyethylene glycoL 3350 17 GM POWD.PACK PO SCH (08:09)
[2020-11-14] MEDS: Lactobacillus 1 EACH CAP.SPRINK PO SCH (08:10)
[2020-11-14] MEDS: Loratadine 10 MG TABLET PO SCH (08:10)
[2020-11-14] MEDS: clonazePAM 1 MG TABLET PO SCH (08:10)
[2020-11-14] MEDS: Multivit/Ca/Min/Fe/FA 1 TAB TABLET PO SCH (08:10)
[2020-11-14] MEDS: NIFEdipine XL (24 HR) 60 MG TAB.ER.24 PO SCH (08:10)
[2020-11-14] MEDS: Gabapentin 400 MG CAPSULE PO SCH ×2 (08:10→14:14)
[2020-11-14] MEDS ORDERED: *HR* OxyCODONE/APAP 5/325 TABLET PO PRN (08:15)
[2020-11-14] MEDS: Fluticasone Propionate Nasal 50 MCG/SPRAY BOTTLE NS SCH (10:21)
[2020-11-15] MEDS ORDERED: levoFLOXacin 750 MG TABLET PO SCH (09:00)
== END 2020-11-14 14:35 | disposition home health service (06) | DRG 315 ==
LOC: EMEROOARM 21:43 → 3NENU 21:43 → SUATTDRO 10-31 04:11 → 3NENU 10-31 04:45 → SUATTDRO 11-01 10:18
PROVIDERS: ADMIT Family Medicine; ATTEND Internal Medicine